=== PATIENT | female | born 1965 | race Caucasian/White ===

== ENCOUNTER 2020-08-13 12:49 | Emergency (ER) | payer BC ==
[~2020-08-13] VITALS: Ht 162.6 cm; Wt 104.3 kg
[~2020-08-13 12:49] MED LIST: ATENOLOL50 MG PO; FLONASE NS; LEVAQUIN500 MG PO; NORCO 10-325 T1 EACH PO; NORCO 5-325 TA1 EACH PO; PANTOPRAZOLE SO40 MG PO; PEPCID20 MG PO; PERCOCET 7.5-31 EACH PO; PROMETHAZINE HC25 M1 PO; VERAPAMIL ER180 M1 PO; VESICARE5 MG PO; XANAX0.5 MG PO; ZOLOFT50 MG PO
--- OUTSIDE RECORDS SUMMARY | 2020-08-13 13:01 | XMS REPORT | Clinical Summary ---
Author Author [facility] Address Unknown Phone Unavailable Care Team Providers Care Claim Processor Name Role Phone Remy Bruce MD PCP Allergies Comments Active Allergy Reactions Severity Noted Date Codeine 06/08/2017 Sulfa (Sulfonamide 06/08/2017 Antibiotics) Medications End Date Status Medication Sig Dispensed Refills Start Date Active verapamil sustained 0 release (CALAN-SR) 180 MG 7 SR tablet Active traMADol (ULTRAM) 50 mg TK 1 T PO 0 tablet EVERY 8 HOURS 7 PRN Active sertraline (ZOLOFT) 50 MG 0 tablet 7 Active pantoprazole (PROTONIX) 0 40 MG EC tablet 7 Active COMBIVENT RESPIMAT 20-100 INHALE 1 PUFF 5 03/28 mcg/actuation mist BY MOUTH 4 7 inhaler TIMES A DAY Active fluticasone (FLONASE) 50 0 mcg/actuation nasal spray 7 Active atenolol (TENORMIN) 100 0 MG tablet 9 Active ALPRAZolam (XANAX) 1 MG 0 tablet 9 Active MYRBETRIQ 50 mg tablet 0 extended release 24 hr 9 Active solifenacin (VESICARE) 10 daily. 0 MG tablet Active gabapentin (NEURONTIN) TAKE 2 90 capsule 1 300 mg capsule CAPSULES BY 0 MOUTH 3 TIMES A DAY Active baclofen (LIORESAL) 10 MG TAKE 1 TABLET 90 tablet 0 tablet BY MOUTH 0 THREE TIMES A DAY NEEDED FOR MUSCLE SPASMS 10/12/2019 Discontinued atenolol (TENORMIN) 50 MG 0 tablet 7 09/05/2019 Discontinued (Reorder) baclofen (LIORESAL) 10 MG Take 1 tab PO 90 tablet 0 tablet TID prn 8 muscle spasms. 09/05/2019 Discontinued (Reorder) gabapentin (NEURONTIN) Take 2 pills 180 capsule 11 100 mg capsule TID 8 09/28/2019 Discontinued (Reorder) baclofen (LIORESAL) 10 MG Take 1 tab PO 90 tablet 0 tablet TID prn 9 muscle spasms. 01/08/2020 Discontinued gabapentin (NEURONTIN) Take 2 pills 90 capsule 1 300 mg capsule TID 9 10/21/2019 Discontinued (Reorder) baclofen (LIORESAL) 10 MG TAKE 1 TABLET 90 tablet 0 tablet BY MOUTH 3 9 TIMES A DAY NEEDED FOR MUSCLE SPASMS 02/18/2020 Discontinued baclofen (LIORESAL) 10 MG TAKE 1 TABLET 90 tablet 0 tablet BY MOUTH 9 THREE TIMES A DAY NEEDED FOR MUSCLE SPASMS 02/18/2020 Discontinued gabapentin (NEURONTIN) TAKE 2 90 capsule 1 300 mg capsule CAPSULES BY 0 MOUTH 3 TIMES A DAY 06/02/2020 Discontinued baclofen (LIORESAL) 10 MG TAKE 1 TABLET 90 tablet 0 tablet BY MOUTH 0 THREE TIMES A DAY NEEDED FOR MUSCLE SPASMS Active Problems Problem Noted Date Myositis 07/20/2017 Encounters Care Team Description Date Type Specialty Davy Nolasco III, MD 06/02/2020 Refill Orthopedic Surgery Davy Nolasco III, MD 02/18/2020 Refill Orthopedic Surgery Davy Nolasco III, MD 01/08/2020 Refill Orthopedic Surgery Jose J Rodriguez MD Abnormal finding on breast imaging 11/09/2019 Hospital Radiology Encounter Jose J Rodriguez MD Abnormal finding on breast imaging 11/09/2019 Hospital Radiology Encounter [facility] 11/02/2019 Telephone Radiology Jose J Rodriguez MD 10/29/2019 Hospital Radiology Encounter Jose J Rodriguez MD 10/29/2019 Hospital Radiology Encounter Davy Nolasco III, MD 10/21/2019 Refill Orthopedic Surgery Jose J Rodriguez MD Well woman exam; Breast cancer screening 10/19/2019 Hospital Radiology Encounter Jose J Rodriguez MD Well woman exam (Primary Dx); Breast cancer screening 10/12/2019 Office Visit Obstetrics and Gyne cology Davy Nolasco III, MD 09/28/2019 Refill Orthopedic Surgery Davy Nolasco III, MD Myositis of other site, unspecified myos itis type (Primary Dx) 09/05/2019 Office Visit Orthopedic Surgery after 08/13/2019 Family History Medical History Relation Name Comments Breast cancer Maternal Sridevi Grandmother Osteoporosis Maternal Sridevi Grandmother Osteoporosis Mother Paty Relation Name Status Comments Maternal Grandmother Sridevi Mother Paty Social History Date Tobacco Use Types Packs/Day Years Used Never Smoker Smokeless Tobacco: Never Used Drinks/Week oz/Week Comments Alcohol Use No Sex Assigned at Date Recorded Not on file Industry Job Start Date Occupation Not on file Not on file Not on file Travel End Travel History Travel Start No recent travel history available. Last Filed Vital Signs Reading Time Taken Comments Vital Sign 147/84 10/12/2019 10:39 AM DENTAL SURGEON Blood Pressure 60 10/12/2019 10:39 AM DENTAL SURGEON Pulse - - Temperature - - Respiratory Rate - - Oxygen Saturation - - Inhaled Oxygen Concentration 113 kg (249 lb) 10/12/2019 10:39 AM DENTAL SURGEON Weight 162.6 cm (5' 4") 10/12/2019 10:39 AM DENTAL SURGEON Height 42.74 10/12/2019 10:39 AM DENTAL SURGEON Body Mass Index Plan of Treatment Health Maintenance Due Date Last Done Comments CERVICAL CANCER SCREENING 1986 COLONOSCOPY SCREENING 2015 SHINGLES VACCINES (#1) 2015 INFLUENZA VACCINE 07/29/2020 08/08/2019 BREAST CANCER SCREENING 11/09/2021 11/09/2019, 10/19/2019 Procedures Comments Procedure Name Priority Date/Time Associated Diag nosis US BREAST LEFT LIMITED Routine 11/09/2019 Abnorma l finding on 9:18 AM DENTAL SURGEON breast imaging MAMMO BREAST DIAGNOSTIC Routine 11/09/2019 Abnorm al finding on TOMOSYNTHESIS LEFT 8:26 AM DENTAL SURGEON breast imaging MAMMO BREAST SCREEN Routine 10/19/2019 Well woman exam TOMOSYNTHESIS BILATERAL 11:40 AM DENTAL SURGEON Breast cancer screening HPV MRNA E6/E7 REFLEX Routine 10/12/2019 HPV 16, 18/45 (REFLEX) 11:15 AM DENTAL SURGEON THINPREP TIS PAP Routine 10/12/2019 11:15 AM DENTAL SURGEON PAP W/AGE BASED SCREENING Routine 10/12/2019 Well woman exam PROTOCOLS 11:15 AM DENTAL SURGEON Breast cancer scree [place] INJECT TRIGGER POINT, Routine 09/05/2019 Myosi tis of other site, 1 OR 2 2:30 PM CDT unspecified myositi s type after 08/13/2019 Results * US Breast Left Limited (11/09/2019 9:18 AM DENTAL SURGEON) Specimen Narrative Performed At PROCEDURE: MAMMO BREAST DIAGNOSTIC TOMOSYNTHESIS LEFT , US BREAST LEFT LIMITED [facility] Computer aided detection with tomosynth esis was utilized for the interpretation. HISTORY: 53-year-old female recalled from screening for an abnormal left mammogram. COMPARISON: 10/19/2019-07/30/2016. DENSITY: The breast are almost entirely fatty. MAMMOGRAM: Additional evaluation was pe rformed for the asymmetry in the right lateral breast. On the full-field digit al left LM view, there is no definitive correlate for the previously noted asym metry and spot compression on the CC view demonstrate effacement of fibroglandular tissues. ULTRASOUND: Targeted left breast ultras ound of the lateral breast demonstrates benign fatty tissue. IMPRESSION: No mammographic or sonogr aphic evidence of malignancy. RECOMMENDATION: Correlation with physic al exam and annual mammography. BI-RADS 1: NEGATIVE DWS01 Performing Organization Address City/State/Zipcode Ph one Number [facility] [address] [place] [address] * Mammo Breast Diagnostic Tomosynthesis Left (11/09/2019 8:26 AM DENTAL SURGEON) Specimen Narrative Performed At PROCEDURE: MAMMO BREAST DIAGNOSTIC TOMOSYNTHESIS LEFT , US BREAST LEFT LIMITED [facility] Computer aided detection with tomosynth esis was utilized for the interpretation. HISTORY: 53-year-old female recalled from screening for an abnormal left mammogram. COMPARISON: 10/19/2019-07/30/2016. DENSITY: The breast are almost entirely fatty. MAMMOGRAM: Additional evaluation was pe rformed for the asymmetry in the right lateral breast. On the full-field digit al left LM view, there is no definitive correlate for the previously noted asym metry and spot compression on the CC view demonstrate effacement of fibroglandular tissues. ULTRASOUND: Targeted left breast ultras ound of the lateral breast demonstrates benign fatty tissue. IMPRESSION: No mammographic or sonogr aphic evidence of malignancy. RECOMMENDATION: Correlation with physic al exam and annual mammography. BI-RADS 1: NEGATIVE DWS01 Performing Organization Address [facility]/Replaced By [facility] one Number [facility] [address] [place] [address] * Mammo Breast Screen Tomosynthesis Bilateral (10/19/2019 11:40 AM DENTAL SURGEON) Specimen Narrative Performed At PROCEDURE: MAMMO BREAST SCREEN TOMOSYNTHESIS BILATERA L [facility] Computer aided detection was utilized f or the interpretation. Bilateral digital screening mammogram was performed with tomosynthesis. COMPARISON EXAMS: 2017 and 2016 DENSITY: The breast tissue is almost entirely fatty. FINDINGS: No suspicious finding is seen in the right breast. There is an asymmetry with the suggesti on of associated architectural distortion in the lateral left breast posterior de pth on the CC views. It is difficult to determine if this may correspond to a s urgical scar site, marked with a linear marker in the upper outer quadrant middle depth. IMPRESSION: Left breast asymmetry with possible dis tortion. Additional imaging evaluation is recommended with left breast diagnostic tomosynthesis mammogram and possible ultrasound exam. BI-RADS 0: INCOMPLETE - need addition al imaging evaluation This facility is accredited by the [facility] [employer] for Mammography. A negative x-ray report should not penny y biopsy if a dominant or clinically suspicious mass is present. Not all c ancers are identified by x-ray. DWS01 Performing Organization Address [facility]/Replaced By [facility] one Number [facility] [address] [place] [address] * HPV mRNA E6/E7 REFLEX HPV 16, 18/45 (10/12/2019 11:15 AM DENTAL SURGEON) HPV mRNA e6/e7 Not Detected Not Detected [facility] Comment: [facility] This test was performed using ING II the APTIMA HPV Assay ([employer] This assay detects E6/E7 viral messenger RNA (mRNA) from 14 high-risk HPV types (16,18,31,33,35,39,45,51,52,56 ,58,59,66,68). The analytical performance characteristics of this assay have been determined by [employer]. The modifications have not been cleared or approved by the FDA. This assay has been validated pursuant to the CLIA regulations and is used for clinical purposes. Specimen Resulting Agency Comment Performing Organization Information: Site ID: [id number] [facility]: [facility] Address: [address] [place] [id number] Director: Dr. Khoa Funes Performing Organization Address [facility]/Replaced By [facility] [place] [address] II * PAP W/AGE BASED SCREENING PROTOCOLS (10/12/2019 11:15 AM DENTAL SURGEON) Comment Comment: [facility] This order for age-based [facility] cervical cancer and STI ING II screening follows ACOG guidelines(PB 168, 140, XPK402). See individual assays for performing site location. Specimen Swab Resulting Agency Comment Performing Organization Information: Site ID: [id number] [facility]: [facility] Address: [address] [place] [id number] Director: Dr. Khoa Funes Performing Organization Address [facility]placed By [facility] one Number [place] [address] [address] II * THINPREP TIS PAP (10/12/2019 11:15 AM DENTAL SURGEON) Clinical None given [facility] information [facility] [place] Date of last NONE GIVEN [facility] menstrual DIAGNOSTICS period [place] Prev. pap: NONE GIVEN [facility] [place] Prev. bx: NONE GIVEN [facility] [place] Source None given [facility] [place] Statement of Comment: [facility] adequacy Satisfactory for evaluation. DI[facility]NOST ICS Endocervical/transformation [place] zone component absent. Interpretation/ Comment: Negative for [facility] result: intraepithelial lesion or DIAGNOSTICS malignancy. [place] Comment Comment: [facility] This Pap test has been DIAGNOSTICS evaluated with computer GARRETT assisted technology. Cytotechnologis Comment: [facility] t KXJ, CT(ASCP) DIAGNOSTICS CT screening location: [place] [address] [address], [facility] [address] Comment Comment: [facility] EXPLANATORY NOTE: DIAGNOSTICS The Pap is a screening test [place] for cervical cancer. It is not a diagnostic test and is subject to false negative and false positive results. It is most reliable when a satisfactory sample, regularly obtained, is submitted with relevant clinical findings and history, and when the Pap result is evaluated along with historic and current clinical information. Specimen Resulting Agency Comment Performing Organization Information: Site ID: [id number] Name: [facility] Address: [address] [place] [address] Director: Khoa Funes Performing Organization Address City/State/Zipcode Ph one Number [place] [employer] [facility] [place] [address] [place] [address] [phone] * 1 or 2 Trigger Point Injection: Bilateral lumbar (09/05/2019 2:30 PM CDT) Narrative Performed At Davy Nolasco III, MD 2018 3:00 PM 1 or 2 Trigger Point Injection: Bilater al lumbar Date/Time: 09/05/2019 2:51 PM Performed by: Davy Nolasco III, MD Authorized by: Davy Nolasco III, MD Consent: Consent obtained: Verbal Consent given by: Patient Indications: Indications: Pain relief Location: Therapeutic Trigger Point Injection: Single/multiple trigger point(s): 1-2 muscle groups Location: back Back location injected: Bilateral l umbar Platelet Rich Plasma Used: no PRP Use d EMG Guidance Used: no emg guidance used Right side: Right Lumbar Medications administered: 3 mg betamethasone acetate & sodium phosphate 6 mg/mL; 6 mg betamethasone a cetate & sodium phosphate 6 mg/mL; 1 mL lidocaine 10 mg/mL (1 %); 0.5 mL l idocaine 10 mg/mL (1 %) Left side: Left Lumbar Medications administered: 3 mg betamethasone acetate & sodium phosphate 6 mg/mL; 6 mg betamethasone a cetate & sodium phosphate 6 mg/mL; 1 mL lidocaine 10 mg/mL (1 %); 0.5 mL l idocaine 10 mg/mL (1 %) Pre-procedure details: Neurovascular status: intact Skin preparation: Alcohol Procedure details: Syringe type: Luer lock syringe Needle gauge: 25 G Post-procedure details: Patient tolerance of procedure: Amee erated well, no immediate complications after 08/13/2019 Insurance Type Payer Benefit Subscriber ID Effective Phone Address Plan / Dates Group PPO BCBS BCBS xxxxxxxxxxxx [id number] CHOICE resent PPO/SERGIO [place] PPO Advance Directives For more information, please contact: [phone] Patient Credit Investigator Explanation Type Date Recorded Advance Directives, Living Will 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
--- OUTSIDE RECORDS SUMMARY | 2020-08-13 13:01 | XMS REPORT | Continuity of Care Document ---
Author Author Hawk Anmooredenys Alba MARILYN Turcios [facility] CSS99 Information Exchange Address Unknown Phone Unavailable Care Team Providers Care Bird Sitter Name Role Phone [employer] Unavailable Un available Problems Problem Status Onset Date Classification Date Reported Comments Source LT HAND' Active 07/17/2019 [facility] LT HAND Active 07/13/2019 [facility] BACK PAIN Active 05/31/2017 [facility] ACUTE LEFT FLANK PAIN Active 05/31/2017 [facility] E66.01MORBID (SEVERE) OBESITY DUE TO EXC Active 09/22/2016 [facility] M85 - OTHER DISORDERS OF BONE DENSIT Active 07/27/2016 [facility] [place] Swelling of limb (finding) Act ger 06/28/2012 Problem 09/21/2019 Data migrated from [employer] on 04/26. [facility] Nidia Ely's,[facility] 719.46 - JOINT PAIN-L/LE Active 02/22/2012 [facility] Fry Synovial cyst of popliteal space (disorder) Active 01/14/2012 Problem 09/21/2019 Data migrated from [employer] on 04/26/15. [facility] Nidia Ely's,[facility] Carpal tunnel syndrome (disorder) Active 09/17/2011 Problem 09/21/2019 Data migrated from [employer] on 04/26. [facility] Nidia Ely's,[facility] Depressive disorder (disorder) Active 09/17/2011 Problem 09/21/2019 Data migrated from [employer] on 04/26. [facility] Nidia Ely's,[facility] Sleep apnea (finding) Active 04/09/2011 Problem 09/21/2019 Data migrated from [employer] on 04/26. [facility] Nidia Ely's,[facility] Drusen of optic disc (disorder) Active 03/26/2011 Problem 09/21/2019 Data migrated from [employer] on 04/26. [facility] NAYLA Lau,[facility] Obesity (disorder) Active 01/25/2011 Problem 09/21/2019 Data migrated from [employer] on 04/26. [facility] Nidia Trevizo [place],[facility] Migraine with aura (disorder) Active 11/06/2010 Problem 09/21/2019 Data migrated from [employer] on 04/26. [facility] Nidia Trevizo [place],[facility] Asthma (disorder) Active 10/05/2010 Problem 09/21/2019 Data migrated from [employer] on 04/26. [facility] Nidia Trevizo [place],[facility] Bronchitis (disorder) Resolved 10/05/2010 Problem 09/21/2019 Data migrated from [employer] on 06/13. [facility] Nidia Trevizo [place],[facility] Hypercholesterolemia (disorder) Active 10/05/2010 Problem 09/21/2019 Data migrated from [employer] on 04/26. [facility] Nidia Trevizo [place],[facility] Hypertensive episode (disorder) Active 10/05/2010 Problem 09/21/2019 Data migrated from [employer] on 04/26. [facility] Nidia Trevizo [place],[facility] Mitral valve prolapse (disorder) Active 10/05/2010 Problem 09/21/2019 Data migrated from [employer] on 04/26. [facility] Nidia Trevizo [place],[facility] Hypertensive disorder, systemic arterial (disorder) Resolved Problem 09/21/2019 [facility] Medications Medication Details Route Status Patient Instructions Ordering Provider Order Date Source tramadol hydrochloride 50 MG Oral Tablet 50 mg = 1 tab, PO, Q6H, PRN Pain, X 5 day, # 20 tab, 0 Refill(s) Active 06/02/2017 [facility] gabapentin 100 MG Oral Capsule 100 mg = 1 cap, PO, Q8H, # 42 cap, 0 Refill(s) Active 06/02/2017 [facility] Pneumovax 23 Notes: (Same as: Pneumovax 23) Refrigerate Inactive 06/02/2017 [facility] Verapamil Notes: Do not crush or chew. (Same As: Calan SR, Isoptin SR) "Avoid grapefruit and grapefruit juice" Inactive 06/02/2017 [facility] Zoloft Notes: (Same as: Zolof t) Inactive 06/02/2017 [facility] Protonix Notes: Tablet should not be chewed or crushed. (Same as: Protonix) Inactive 06/02/2017 [facility] gabapentin 100 MG Oral Capsule Notes: (Same as: Neurontin) Inactive 06/02/2017 [facility] Atenolol 50 MG Oral Tablet Not es: (Same As:Tenormin) No Longer Active 06/02/2017 [facility] Fluticasone propionate 0.05 MG/ACTUAT Me tered Dose Nasal [place] [Flonase] Notes: (Same as: Flonase) No Longer Active 06/01/2017 [facility] Albuterol 0.833 MG/ML / Ipratropium Brom gerardo 0.167 MG/ML Inhalant Solution [DuoNeb] Notes: (Same as: Duoneb) No Longer Active 06/01/2017 [facility] pneumococcal capsular polysaccharide typ e 1 vaccine / pneumococcal capsular polysaccharide type 10A vaccine / pneumococcal capsular polysaccharide type 11A vaccine / pneumococcal capsular polysaccharide type 12F vaccine / pneumococcal capsular polysacchar Notes: (Same as: Pneumovax 23) Refrigerate No Longer Active 06/01/2017 [facility] Sucralfate 100 MG/ML Oral Suspension [Carafate] Notes: May interfere w/enteral feeds - Take 1 hr before or 2 hr after antacids, dairy pdt, meals & minerals - On empty stomach. For patients unable to swallow tablet, dissolve in 10mL - 30mL of water or juice and stir before giving. (Same As: Carafate) No Longer Activ e 06/01/2017 [facility] Saline Flush 0.9% Notes: (Same as: BD Posiflush) No Longer Active 06/01/2017 [facility] Sodium Chloride 0.154 MEQ/ML Injectable Solution 1,000 mL, Rate: 125 ml/hr, Infuse over: 8 hr, Route: IV, Dosing Weight 103.636 kg, Total Volume: 1,000, Start date: 05/31/17 19:59:00 CDT, Duration: 30 day, Stop date: 06/30/17 19:58:00 CDT No Longer Active 06/01/2017 [facility] Acetaminophen 325 MG / Hydrocodone Jesusita trate 5 MG Oral Tablet Notes: (Same as: [place] 325/5) Do not ex ceed 4gm/day of acetaminophen. No Longer Active 06/01/2017 [facility] Morphine 2 mg, 1 mL, Route: IV P, Drug form: SOLN, Q4H, Dosing Weight 103.636, kg, PRN Pain Score 7-10, Start date: 05/31/17 19:59:00 CDT, Duration: 30 day, Stop date: 06/30/17 19:58:00 CDT No Longer Active 06/01/2017 [facility] Ondansetron Notes: (Same as: Tresa person) MEDICATION WASTE Product Size: 4 mg Product Wasted: ___ mg No Longer Active 06/01/2017 [facility] MethylPREDNISolone Dose Pack 4 mg oral tablet See Instructions, PO, Daily, Use as directed on label., # 1 Pack, 0 Refill(s) No Longer Active 06/01/2017 [facility] verapamil 180 mg oral tablet, extended release 180 mg = 1 tab, PO, Daily, # 30 tab, 0 Refill(s) Active 06/01/2017 [facility] Sucralfate 100 MG/ML Oral Suspension [Carafate] 1 gm = 10 ml, PO, QID-Before Meals, # 400 ml, 0 Refill(s) Active 06/01/2017 [facility] Atenolol 50 MG Oral Tablet 50 mg = 1 tab, PO, Bedtime, # 30 tab, 0 Refill(s) Active 06/01/2017 [facility] Fluticasone propionate 0.05 MG/ACTUAT Me tered Dose Nasal [place] [Flonase] 1 spray, NASAL, BID, # 16 gm, 0 Refill(s ) Active 06/01/2017 [facility] 200 ACTUAT Albuterol 0.09 MG/ACTUAT / Ip ratropium [place] 0.018 MG/ACTUAT Metered Dose Inhaler [Combivent] See Instructions, 0 Refill(s) Active 06/01/2017 [facility] pantoprazole 40 MG Enteric Coated Tablet [Protonix] 40 mg = 1 tab, PO, Daily, # 30 tab, 0 Refill(s) Active 06/01/2017 [facility] Sertraline 50 MG Oral Tablet [Zoloft] 50 mg = 1 tab, PO, Daily, 0 Refill(s) Active 06/01/2017 [facility] Sodium Chloride 0.154 MEQ/ML Injectable Solution 1,000 mL, Rate: 100 ml/hr, Infuse over: 10.2 hr, Route: IV, Dosing Weight 103.636 kg, Total Volume: 1,015.2, Start date: 05/31/17 17:23:00 CDT, Duration: 1 doses or times, Stop date: 06/01/17 3:34:00 CDT Inactive 05/31/2017 [facility] Dilaudid 0.5 mg, 0.5 mL, Route : IV, Drug form: INJ, ONCE, Dosing Weight 103.636, kg, Start date: 05/31/17 17:12:00 CDT, Stop date: 05/31/17 17:12:00 CDT Inactive 05/31/2017 [facility] Dilaudid 0.5 mg, 0.5 mL, Route : IV, Drug form: INJ, ONCE, Dosing Weight 103.636, kg, Start date: 05/31/17 13:47:00 CDT, Stop date: 05/31/17 13:47:00 CDT Inactive 05/31/2017 [facility] Morphine Notes: (Same as:MORPh ine Sulfate) Inactive 05/31/2017 [facility] Zofran Notes: (Same as: Zofran ) MEDICATION WASTE Product Size: 4 mg Product Wasted: ___ mg Inactive 05/31/2017 [facility] Sodium Chloride 0.154 MEQ/ML Injectable Solution 1,000 mL, 1,000 ml/hr, Infuse Over: 1 hr, Route: IV, 1,000, Drug form: INJ, ONCE, Priority: STAT, Dosing Weight 103.636 kg, Start date: 05/31/17 12:07:00 CDT, Duration: 1 doses or times, Stop date: 05/31/17 12:07:00 CDT Inactive 05/31/2017 [facility] Allergies, Adverse Reactions, Alerts Substance Category Reaction Severity Reaction type Status Date Reported Comments Source codeine<sup>1</sup> Assertion Drug allergy Active 10/05/2010 Data migrated from [employer] on 01/28/16. Originally documented as CODEINE. [facility] sulfa drugs<sup>2</sup> Assert ion Drug aller gy Active 10/05/2010 Data migrated from [employer] on 06/26/15. Originally documented as SULFA. [facility] sulfa drugs<sup>1</sup> Assert ion Drug aller gy Active 10/05/2010 Data migrated from [employer] on 06/26/15. Originally documented as SULFA. [facility] codeine<sup>2</sup> Assertion Drug allergy Active 10/05/2010 Data migrated from [employer] on 01/28/16. Originally documented as CODEINE. [facility] Immunizations Immunization Date Given Site Status Last Updated Comments Source pneumococcal 23-valent vaccine 06/02/2017 Right deltoid completed Norbert Choudhary [facility] [facility] Results Order Name Results Value Reference Range Date Interpretation Comments Source CHEM PANEL Magnesium Lvl 1.9 1.8 - 2.4 06/01/2017 [facility] CHEM PANEL Phosphorus 4.1 2.5 - 4.5 06/01/2017 [facility] CHEM PANEL BUN 13 7 - 22 06/01/2017 [facility] CHEM PANEL Creatinine Lvl 0.75 0.50 - 1.40 06/01/2017 [facility] CHEM PANEL Glucose Lvl 77 70 - 99 06/01/2017 [facility] CHEM PANEL B/C Ratio 17 6 - 25 06/01/2017 [facility] CHEM PANEL Calcium Lvl 8.4 8.5 - 10.5 06/01/2017 [facility] CHEM PANEL CO2 29 24 - 32 06/01/2017 [facility] CHEM PANEL AGAP 10.5 10.0 - 20.0 06/01/2017 [facility] CHEM PANEL Chloride Lvl 107 95 - 109 06/01/2017 [facility] CHEM PANEL Potassium Lvl 3.5 3.5 - 5.1 06/01/2017 [facility] CHEM PANEL Sodium Lvl 143 135 - 145 06/01/2017 [facility] CHEM PANEL AST 221 0 - 37 06/01/2017 [facility] CHEM PANEL Alk Phos 162 39 - 136 06/01/2017 [facility] CHEM PANEL A/G Ratio 1.3 0.7 - 1.6 06/01/2017 [facility] CHEM PANEL ALT 115 0 - 65 06/01/2017 [facility] CHEM PANEL Albumin Lvl 3.5 3.5 - 5.0 06/01/2017 [facility] CHEM PANEL Globulin 2.7 2.7 - 4.2 06/01/2017 [facility] CHEM PANEL Total Protein 6.2 6.4 - 8.4 06/01/2017 [facility] CHEM PANEL eGFR 93 06/01/2017 Result Comment: The eGFR is calculated using the CKD-EPI formula. In most young, healthy individuals the eGFR will be >90 mL/min/1.73m2. The eGFR declines with age. An eGFR of 60-89 may be normal in some populations, particularly the elderly, for whom the CKD-EPI formula has not been extensively validated. Use of the eGFR is not recommended in the following populations:

Individuals with unstable creatinine concentrations, including patients and those with serious co-morbid conditions.

Patients with extremes in muscle mass or diet.

The data above are obtained from the National Kidney Disease Education Program (NKDEP) which additionally recommends that when the eGFR is used in patients with extremes of body mass index for purposes of drug dosing, the eGFR should be multiplied by the estimated BMI. [facility] CHEM PANEL Bili Total 1.0 0.2 - 1.3 06/01/2017 [facility] RBC 4.58 4.20 - 5.40 06/01/2017 [facility] MCHC 32.9 32.0 - 36.0 06/01/2017 [facility] Hgb 12.3 12.0 - 16.0 06/01/2017 [facility] Hct 37.3 36.0 - 48.0 06/01/2017 [facility] MCV 81.4 80.0 - 98.0 06/01/2017 [facility] MCH 26.8 27.0 - 31.0 06/01/2017 [facility] MPV 8.0 7.4 - 10.4 06/01/2017 [facility] RDW 15.2 11.5 - 14.5 06/01/2017 [facility] Platelet 245 133 - 450 06/01/2017 [facility] WBC 7.9 3.7 - 10.4 06/01/2017 [facility] Lymphocytes 32.7 20.0 - 40.0 06/01/2017 [facility] Monocytes 6.7 2.0 - 12.0 06/01/2017 [facility] Segs 58.5 45.0 - 75.0 06/01/2017 [facility] Eosinophils 1.7 0.0 - 4.0 06/01/2017 [facility] HEMATOLOGY Basophils 0.4 0.0 - 1.0 06/01/2017 [facility] HEMATOLOGY Segs-Bands # 4.6 1.5 - 8.1 06/01/2017 [facility] HEMATOLOGY Lymphocytes # 2.6 1.0 - 5.5 06/01/2017 [facility] HEMATOLOGY Monocytes # 0.5 0.0 - 0.8 06/01/2017 [facility] HEMATOLOGY Eosinophils # 0.1 0.0 - 0.5 06/01/2017 [facility] CHEM PANEL Lipase Lvl 205 73 - 393 05/31/2017 [facility] CHEM PANEL B/C Ratio 14 6 - 25 05/31/2017 [facility] CHEM PANEL A/G Ratio 1.2 0.7 - 1.6 05/31/2017 [facility] CHEM PANEL Globulin 3.0 2.7 - 4.2 05/31/2017 [facility] CHEM PANEL AGAP 11.3 10.0 - 20.0 05/31/2017 [facility] CHEM PANEL Bili Total 0.3 0.2 - 1.3 05/31/2017 [facility] CHEM PANEL eGFR 74 05/31/2017 Result Comment: The eGFR is calculated using the CKD-EPI formula. In most young, healthy individuals the eGFR will be >90 mL/min/1.73m2. The eGFR declines with age. An eGFR of 60-89 may be normal in some populations, particularly the elderly, for whom the CKD-EPI formula has not been extensively validated. Use of the eGFR is not recommended in the following populations:

Individuals with unstable creatinine concentrations, including patients and those with serious co-morbid conditions.

Patients with extremes in muscle mass or diet.

The data above are obtained from the National Kidney Disease Education Program (NKDEP) which additionally recommends that when the eGFR is used in patients with extremes of body mass index for purposes of drug dosing, the eGFR should be multiplied by the estimated BMI. [facility] CHEM PANEL Total Protein 6.5 6.4 - 8.4 05/31/2017 [facility] CHEM PANEL ALT 34 0 - 65 05/31/2017 [facility] CHEM PANEL Albumin Lvl 3.5 3.5 - 5.0 05/31/2017 [facility] CHEM PANEL Alk Phos 121 39 - 136 05/31/2017 [facility] CHEM PANEL Creatinine Lvl 0.90 0.50 - 1.40 05/31/2017 [facility] CHEM PANEL Sodium Lvl 144 135 - 145 05/31/2017 [facility] CHEM PANEL Potassium Lvl 3.3 3.5 - 5.1 05/31/2017 [facility] CHEM PANEL Glucose Lvl 90 70 - 99 05/31/2017 [facility] CHEM PANEL BUN 13 7 - 22 05/31/2017 [facility] CHEM PANEL AST 17 0 - 37 05/31/2017 [facility] CHEM PANEL Chloride Lvl 108 95 - 109 05/31/2017 [facility] CHEM PANEL CO2 28 24 - 32 05/31/2017 [facility] CHEM PANEL Calcium Lvl 9.1 8.5 - 10.5 05/31/2017 [facility] HEMATOLOGY Hgb 12.6 12.0 - 16.0 05/31/2017 [facility] HEMATOLOGY WBC 8.8 3.7 - 10.4 05/31/2017 [facility] HEMATOLOGY RBC 4.73 4.20 - 5.40 05/31/2017 [facility] HEMATOLOGY Hct 38.5 36.0 - 48.0 05/31/2017 [facility] HEMATOLOGY MCV 81.3 80.0 - 98.0 05/31/2017 [facility] HEMATOLOGY MPV 8.3 7.4 - 10.4 05/31/2017 [facility] HEMATOLOGY Platelet 265 133 - 450 05/31/2017 [facility] HEMATOLOGY RDW 15.5 11.5 - 14.5 05/31/2017 [facility] MCH 26.7 27.0 - 31.0 05/31/2017 [facility] MCHC 32.9 32.0 - 36.0 05/31/2017 [facility] HEMATOLOGY Monocytes # 0.6 0.0 - 0.8 05/31/2017 [facility] HEMATOLOGY Lymphocytes 24.4 20.0 - 40.0 05/31/2017 [facility] HEMATOLOGY Basophils # 0.1 0.0 - 0.2 05/31/2017 [facility] HEMATOLOGY Monocytes 7.0 2.0 - 12.0 05/31/2017 [facility] HEMATOLOGY Basophils 0.8 0.0 - 1.0 05/31/2017 [facility] HEMATOLOGY Eosinophils 0.6 0.0 - 4.0 05/31/2017 [facility] HEMATOLOGY Segs-Bands # 5.9 1.5 - 8.1 05/31/2017 [facility] HEMATOLOGY Lymphocytes # 2.1 1.0 - 5.5 05/31/2017 [facility] HEMATOLOGY Segs 67.2 45.0 - 75.0 05/31/2017 [facility] URINE AND STOOL UA RBC 1 0 - 2 05/31/2017 [facility] URINE AND STOOL UA WBC <1 0 - 5 05/31/2017 [facility] URINE AND STOOL UA Sq Epi Occasional /LPF Few /LPF 05/31/2017 [facility] URINE AND STOOL UA Leuk Est Negative (05/31/17 12:41 PM) Negative 05/31/2017 [facility] URINE AND STOOL UA Nitrite Negative (05/31/17 12:41 PM) Negative 05/31/2017 [facility] URINE AND STOOL UA Urobilinogen <=1.0 mg/dL 0.1 - 1.0 05/31/2017 [facility] URINE AND STOOL UA Color Ltyellow 05/31/2017 [facility] URINE AND STOOL UA Bili Negative *NA* (05/31/17 12:41 PM) Negative 05/31/2017 [facility] URINE AND STOOL UA Glucose Negative mg/dL Negative mg/dL 05/31/2017 [facility] URINE AND STOOL UA pH 7.0 5.0 - 8.0 05/31/2017 [facility] URINE AND STOOL UA Blood Negative (05/31/17 12:41 PM) Negative 05/31/2017 [facility] URINE AND STOOL UA Protein Negative mg/dL Negative mg/dL 05/31/2017 [facility] URINE AND STOOL UA Ketones Negative mg/dL Negative mg/dL 05/31/2017 [facility] URINE AND STOOL UA Spec Grav 1.010 <=1.030 05/31/2017 [facility] URINE AND STOOL UA Turbidity Clear (05/31/17 12:41 PM) Clear 05/31/2017 [facility] URINE CHEM U Preg Negat ger (05/31/17 12:41 PM) Negative 05/31/2017 [facility] Pathology Reports No Data Provided for This Section Diagnostic Reports Report Value Date Source Breast Mammo Scrn WM w laurie incl CAD MA #[id number] - BREAST MAMMO SCRN WM W LAURIE INCL CAD MA BILATERAL DIGITAL SCREENING MAMMOGRAM 3D/2D WITH CAD: 09/21/2017 CLINICAL: /Z12.39 Encounter For Other Screening For Malignant Neoplasm Of Breast. Current study was evaluated with a Computer Aided Detection (CAD) system. COMPARISON:Comparison is made to exams dated: 07/30/2016 mammogram, 06/06/2015 mammogram, 02/02/2014 mammogram, 11/25/2012 mammogram, 10/22/2011 mammogram, and 07/16/2010 mammogram - [facility]. TECHNIQUE: Digital Breast Tomosynthesis was performed and utilized for Interpretation. Current study was also evaluated with a Computer Aided Detection (CAD) system. There are scattered fibroglandular densities in both breasts. FINDINGS: There are benign calcifications in both breasts. There also are benign scattered densities in both breasts. No significant masses, calcifications, or other findings are seen in either breast. There has been no significant interval change. IMPRESSION: BENIGN 1. NO DEFINITE MAMMOGRAPHIC EVIDENCE OF MALIGNANCY IN EITHER BREAST AND NO SIGNIFICANT CHANGE. RECOMMENDATION: 1. A ROUTINE SCREENING MAMMOGRAM IN ONE YEAR. Caroline Antoine M.D. sg/:09/22/2017 13:29:53 Outpatient Facility Physical Therapist(s): Zhara Chavez, [facility] This exam was dictated and interpreted by [id number] for [facility]. letter sent: BI-RADS 1/2 Mammogram BI-RADS: 2 Benign 09/21/2017 [facility] [place] Spine lumbar w/wo contrast MRI Patient Name: MARILYN FABIAN : 1965; Age: 51 years Female MR: [id number] Study: Spine lumbar w/wo contrast MRI 06/01/2017 3:28 PM CDT Clinical Indication: Back Pain - Pt c/o LBP, extending to left leg x 2 weeks. Pt denies injury. GFR 93 20 cc Multihance Lot [id number] // Nadine. COMPARISON: None TECHNIQUE: Multiplanar T1, T2, STIR weighted pre and postcontrast MRI of the lumbar spine is performed on the 1.5 [place] magnet. FINDINGS: ALIGNMENT AND GENERAL ASSESSMENT: Mild anterolisthesis of L4 and L5 measures 2 mm. The bone marrow is normal for the patient's age. There is no compression fracture. The anterior and posterior paraspinal soft tissues are normal. The conus medullaris ends at the L1 level. For the sake of nomenclature, five lumbar vertebrae are assumed. No abnormal vertebral body, disc or epidural enhancement post gadolinium. Nonenhancing bilateral renal cysts post gadolinium. DISC SPACES: T12-L1: The disc is normal. There is no central canal stenosis. There is no foraminal stenosis. The facet joints are normal. L1-L2: Small broad-based disc bulge. There is no central canal stenosis. Minimal left foraminal stenosis. The facet joints are normal. L2-L3: Small broad-based disc bulge. There is no central canal stenosis. Mild bilateral foraminal stenosis. The facet joints are normal. L3-L4: Small broad-based disc bulge. There is no central canal stenosis. Moderate left foraminal stenosis. The facet joints are normal. L4-L5: Small broad-based disc bulge. There is no central canal stenosis. There is no foraminal stenosis. Moderate to severe facet arthritic change. L5-S1: Small broad-based disc bulge. There is no central canal stenosis. There is no foraminal stenosis. Mild facet arthritic change bilaterally. IMPRESSION: Multilevel disc bulging with foraminal stenosis and facet arthritic change as described above. SL: [id number] 06/02/2017 [facility] Abdomen/Pelvis w/wo IV contrast CT Study: CT ABDOMEN AND PELVIS WITH AND WITHOUT CONTRAST Clinical Indication: Severe left abdominal pain for one week Comparison: None Technique: Axial images with sagittal and coronal reconstructions were obtained following intestinal contrast and prior to and following nonionic intravenous contrast, Omnipaque [address] Radiation Dose: DLP = 3294.63 mGy-cm. FINDINGS: The lung bases are clear. There is mild fatty infiltration of the liver. There is mild dilatation of biliary system, post cholecystectomy. Common duct measures 1.2 cm. No distal obstructing lesion is identified. The spleen appears normal. There is a slightly prominent left extrarenal pelvis and there are small cortical cysts. The kidneys are otherwise normal. The adrenals and pancreas are normal. Lower midline 3.9 cm diameter ventral abdominal wall defect allows herniation of small bowel and mesenteric fat into the abdominal wall pannus without inflammation or obstruction. No other intestinal lesion is identified, and there is no mesenteric inflammatory change. The uterus is absent. Adnexa and urinary bladder are not remarkable. No adenopathy or ascites is seen. Moderate lumbar spondylosis is noted. IMPRESSION: 1. No urinary tract pathology. 2. Fatty liver and slightly dilated bili andriy system post cholecystectomy. 3. Lower midline ventral abdominal wall hernia containing small bowel and fat without obstruction or inflammation. 4. Hysterectomy. SL: [id number] 05/31/2017 [facility] Stomach emptying WI Patient Na me: MARILYN FABIAN : 1965; Age: 50 years Female MR: [id number] Study: Stomach emptying NM 10/01/2016 7:45 AM CDT Clinical Indication: R10.13 Epigastric pain COMPARISON: None TECHNIQUE: 1 mCi of sulfur colloid meal was administered orally. Images were performed in anterior projection and an excretion curve plotted. FINDINGS: There is prompt activity identified within the stomach and prompt excretion into the small bowel thereafter. The slope of the excretion curve is within normal limits. The T half life is 70 minutes. (Normal range of 45min- 110min). % excretion at approx. 60 minutes: 22 % % excretion at approx. 90 minutes: 47 % % excretion at approx. 120 minutes: 63 % % excretion at approx. 180 minutes: 94 % % excretion at approx. 240 minutes: N/A % (Normal >90%) IMPRESSION: Normal gastric emptying study. SL: [id number] 10/01/2016 [facility] Bone Density DXA [employer] MA - Bone Density DXA [employer] MA BONE DENSITY EVALUATION: 07/30/2016 RISK FACTORS: race. FINDINGS: Bone density evaluation was performed 07/30/2016 on the AP L1-L4 region of spine using a Hologic unit. The BMD average for the exam is 1.125 g/cm2. The T-score is 0.70 and the Z-score is 1.50. These values indicate 117.0% for age-matched controls. This matches the World Health Organization's criteria for normal bone density and places the patient within normal limits of fracture risk. An additional bone density evaluation was performed 07/30/2016 on the right femur neck using a Hologic unit. The BMD average for the exam is 0.923 g/cm2. The T-score is 0.70 and the Z-score is 1.40. These values indicate 121.0% for age-matched controls. This matches the World Health Organization's criteria for normal bone density and places the patient within normal limits of fracture risk. An additional bone density evaluation was performed 07/30/2016 on the right hip using a Hologic unit. The BMD average for the exam is 1.119 g/cm2. The T-score is 1.50 and the Z-score is 1.90. These values indicate 127.0% for age-matched controls. This matches the World Health Organization's criteria for normal bone density and places the patient within normal limits of fracture risk. An additional bone density evaluation was performed 07/30/2016 on the left femur neck using a Hologic unit. The BMD average for the exam is 0.853 g/cm2. The Z- score is 0.80. These values indicate 112.0% for age-matched controls. Complete risk assessment of this region was not determined. An additional bone density evaluation was performed 07/30/2016 on the left hip using a Hologic unit. The BMD average for the exam is 1.122 g/cm2. The T-score is 1.50 and the Z-score is 2.00. These values indicate 127.0% for age-matched controls. This matches the World Health Organization's criteria for normal bone density and places the patient within normal limits of fracture risk. IMPRESSION: BONE DENSITY WITHIN NORMAL LIMITS Patient is at normal risk for fracture. Compared to BMD of prior exam of 07/16/2010, there has been a decrease in bone density in the lumbar spine of 1.1% and a decrease in bone density in the left hip of 8.2%. This exam was dictated and interpreted by [address] [place], [place] [address]GurpreetGurpreet [address] [place] [address], [place] [address]. Corey Decker M.D. bf/:08/03/2016 09:29:06 Outpatient Facility Physical Therapist: Delfina KING(Nicci)(Kenrick), [facility] 07/30/2016 [facility] Digital Mammo Screening Wm MA - DIGITAL MAMMO SCREENING WM MA BILATERAL DIGITAL SCREENING MAMMOGRAM WITH CAD: 07/30/2016 CLINICAL: Routine. Family history of breast cancer includes: Maternal great aunt . Current study was evaluated with a Computer Aided Detection (CAD) system. Comparison is made to exams dated: 06/06/2015 mammogram, 02/02/2014 mammogram, 11/25/2012 mammogram, 10/22/2011 mammogram, 07/16/2010 mammogram and 06/28/2009 mammogram - [facility]. There are scattered fibroglandular densities in both breasts. There are benign scattered calcifications and densities in both breasts. No significant masses, calcifications, or other findings are seen in either breast. There has been no significant interval change. IMPRESSION: BENIGN There is no mammographic evidence of malignancy. A 1 year screening mammogram is recommended. Sha Gómez M.D., mt/jacki:08/03/2016 10:37:33 Outpatient Facility Physical Therapist: Delfina Lopez RT(Nicci)(Kenrick), [facility] This exam was dictated and interpreted by [id number] [facility]. letter sent: Normal exam Mammogram BI-RADS: 2 Benign 07/30/2016 [facility] Consultation Notes No Data Provided for This Section Discharge Summaries No Data Provided for This Section History and Physicals No Data Provided for This Section Vital Signs Vital Sign Value Date Comments Source Temperature Oral (F) 98.2 F 06/02/2017 [facility] Heart Rate 66 06/02/2017 [facility] Respitory Rate 18 06/02/2017 [facility] Systolic (mm Hg) 135 06/02/2017 [facility] Diastolic (mm Hg) 79 06/02/2017 [facility] Systolic (mm Hg) 146 06/02/2017 [facility] Diastolic (mm Hg) 77 06/02/2017 [facility] Respitory Rate 18 06/02/2017 [facility] Heart Rate 53 06/02/2017 [facility] Temperature Oral (F) 98.2 F 06/02/2017 [facility] Systolic (mm Hg) 145 06/02/2017 [facility] Diastolic (mm Hg) 65 06/02/2017 [facility] Respitory Rate 19 06/02/2017 [facility] Temperature Oral (F) 98.8 F 06/02/2017 [facility] Heart Rate 52 06/02/2017 [facility] Height 160.02 cm 06/01/2017 [facility] Weight 103.636 06/01/2017 [facility] BMI Calculated 40.47 06/01/2017 [facility] Weight 103.636 05/31/2017 [facility] Height 160.02 cm 05/31/2017 [facility] BMI Calculated 40.47 05/31/2017 [facility] Encounters Location Location Details Encounter Type Encounter Number Reason For Visit Attending Provider ADM Date DC Date Status Source [facility]patient [facility] - [facility] Diag Services [id number] 04 Dasiajb Devine 07/30/2016 07/31/2016 [facility] Outpatient [id number] Helen Christina 10/01/2016 10/02/2016 [facility] Observation [id number] Jeffery Varner 05/31/2017 06/02/2017 [facility] Outpatient [facility] - [facility] Diag Services [id number] Dasia Devine 09/21/2017 09/22/2017 [facility] Nidia Ely's [facility] OP Therapy Patients [id number] Tab Christensen 07/17/2019 08/16/2019 [facility] OP Therapy Patients [id number] Tab Christensen 08/21/2019 09/20/2019 [facility] OD [id number] 719.46 - JOINT PAIN-L/LE DENISE YU Cancel PASCALE [place] Procedures Procedure Code Date Perfomer Comments Source Cholecystectomy [id number] [facility] Denia santoro [facility] Assessment and Plan No Data Provided for This Section Plan of Care No Data Provided for This Section Social History Social History Date Source Social History TypeResponse Smoking Status Never smoker; Exposure to Tobacco Smoke None; Cigarette Smoking Last 365 Days No; Reg Smoking Cessation Counseling No 05/31/2017 [facility] Ndiia Barrios s Social History TypeResponse Smoking Status Never smoker; Exposure to Tobacco Smoke None; Cigarette Smoking Last 365 Days No; Reg Smoking Cessation Counseling No 05/31/2017 [facility] Social History TypeResponse Smoking Status Never smoker; Exposure to Tobacco Smoke None; Cigarette Smoking Last 365 Days No; Reg Smoking Cessation Counseling No entered on: 05/31/17 05/31/2017 [facility] Family History No Data Provided for This Section Advance Directives No Data Provided for This Section Functional Status No Data Provided for This Section
--- OUTSIDE RECORDS SUMMARY | 2020-08-13 13:02 | XMS REPORT | Continuity of Care Document ---
Author Author [facility] t Organization [facility] Address Formerly [facility], later [facility] [place] [address] Phone Unavailable Care Team Providers Care Milk Collector Name Role Phone Jaxson MAHARAJ PCP Unavailable Jaxson MAHARAJ Attphys Unavailable Constance CASTRO, Damián Bhatti Attphys Jennifer CASTRO, Lydia Lux Attphys Di Corcoran Attphys Unavailable Jesus Christensen Attphys TAB CHRISTENSEN M.D. Attphys Unavailable Tracie Meyers Attphys Korey Devine Attphys Librado Varner Attphys Akilah Still Attphys Librado Varner Admphys Payers Payer Name Policy Type Policy Number Effective Date Expiration Date Gary rousseau [place] POS [id number] 2014 00:00:00 BCBSBCBS CHOICE PPO/FEDERAL EMPL PPOxxxxxxxxxxxx2013-Pre sentPPO xxxxxxxxxxxx 2014 00:00:00 [facility] Problems Condition Name Condition Details Condition Category Status Onset Date Resolution Date Last Treatment Date Treating Clinician Comments Source LT HAND' LT H AND' Active 07/17/2019 [facility] Diagnosis Active 2019-07-17 08:00:00 2019-08-21 14:01:00 Hawk Fry LT HAND LT H AND Active 07/13/2019 [facility] Diagnosis Active 2019-07-13 08:00:00 2019-07-17 14:12:00 Hawk Fry Myositis Myositis Disease Active 2017-07-20 00:00:00 [facility] BACK PAIN BACK PAIN Active 05/31/2017 [facility] Diagnosis Active 2017-05-31 00:00:00 2017-05-31 18:06:00 Hawk Fry ACUTE LEFT FLANK PAIN ACUT E LEFT FLANK PAIN Active 05/31/2017 [facility] Diagnosis Active 2017-05-31 00:00:00 2017-06-01 10:46: 00 Hawk Fry E66.01MORBID (SEVERE) OBESITY DUE TO EXC E66.01MORBID (SEVERE) OBESITY DUE TO EXC Active 09/22/2016 [facility] Diagnosis Ac tive 2016-09-22 00:00:00 2016-10-01 07:34:00 M ludwig Fry M85 - OTHER DISORDERS OF BONE DENSIT M85 - OTHER DISORDERS OF BONE DENSIT Active 07/27/2016 [facility] Diagnosis Active 2016-07-27 00:01:00 2016-07-30 09:33:00 M ludwig Fry Swelling of limb (finding) Swe lling of limb (finding) Active 06/28/2012 Problem 09/21/2019 Data migrated from [employer] on 04/26/15. [facility] Nidia [facility] Problem Active 2012-06-28 00:00:00 2019-09-21 23:18:21 Hawk Fry 719.46 - JOINT PAIN-L/LE 719. 46 - JOINT PAIN-L/LE Active 02/22/2012 [facility] Diagnosis Active 2012-02-22 00:01:00 2012-04-20 19:14:00 Hawk Fry Synovial cyst of popliteal space (disorder) Synovial cyst of popliteal space (disorder) Active 01/14/2012 Problem 09/21/2019 Data migrated from [employer] on 04/26/15. [facility] Nidia [facility] Problem Active 2012-01-14 00:00:00 2019-09-21 23:18:21 Hawk Fry Carpal tunnel syndrome (disorder) Carpal tunnel syndrome (disorder) Active 09/17/2011 Problem 09/21/2019 Data migrated from [employer] on 04/26/15. [facility] Nidia BarriossNAYLA,[facility] Problem Active 2011-09-17 00:00:00 2019-09-21 23:18:21 [facility] Depressive disorder (disorder) Depressive disorder (disorder) Active 09/17/2011 Problem 09/21/2019 Data migrated from [employer] on 04/26/15. [facility] Nidia BarriossNAYLA,[facility] Problem Active 2011-09-17 00:00:00 2019-09-21 23:18:21 [facility] [place] Sleep apnea (finding) Slee p apnea (finding) Active 04/09/2011 Problem 09/21/2019 Data migrated from [employer] on 04/26/15. 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 [facility] Nidia BarriossNYALA, [facility] Problem Active 2011-03-26 00:00:00 2019-09-21 23:18:21 [facility] [place] Obesity (disorder) Obes ity (disorder) Active 01/25/2011 Problem 09/21/2019 Data migrated from [employer] on 04/26/15. [facility] Nidia BarriossNAYLA, [facility] Problem Active 2011-01-25 00 :00:00 2019-09-21 23:18:21 [facility] Migraine with aura (disorder) Migraine with aura (disorder) Active 11/06/2010 Problem 09/21/2019 Data migrated from [employer] on 04/26/15. [facility] Nidia BarriossNAYLA,[facility] Problem Active 2010-11-06 00:00:00 2019-09-21 23:18:21 [facility] Asthma (disorder) Asth ma (disorder) Active 10/05/2010 Problem 09/21/2019 Data migrated from [employer] on 04/26/15. [facility] Nidia TrevizoNAYLA Bravo,[facility] Problem Active 2010-10-05 00 :00:00 2019-09-21 23:18:21 [facility] Hypercholesterolemia (disorder) Hypercholesterolemia (disorder) Active 10/05/2010 Problem 09/21/2019 Data migrated from [employer] on 04/26/15. [facility] NAYLA Lau,[facility] Problem Active 2010-10-05 00:00:00 2019-09-21 23:18:21 [facility] Hypertensive episode (disorder) Hypertensive episode (disorder) Active 10/05/2010 Problem 09/21/2019 Data migrated from [employer] on 04/26/15. [facility] NAYLA Lau,[facility] Problem Active 2010-10-05 00:00:00 2019-09-21 23:18:21 M emorishaheen Fry Mitral valve prolapse (disorder) Mitral valve prolapse (disorder) Active 10/05/2010 Problem 09/21/2019 Data migrated from [employer] on 04/26/15. [facility] Nidia Trevizo Lawrence,[facility] Problem Active 2010-10-05 00:00:00 2019-09-21 23:18:21 M ludwig Fry Pain of finger of right hand Pain of finger of right hand Problem Active [facility] Arthritis of carpometacarpal (CMC) joint of left thumb Arthritis of carpometacarpal (CMC) joint of left thumb Problem Active [facility] Arthritis of carpometacarpal (CMC) joint of right thum b Arthritis of carpometacarpal (CMC) joint of right thumb Problem Active [facility] De Quervain's tenosynovitis, left De Quervain's tenosynovitis, l eft Problem Active [facility] Contusion of left hand, initial encounter Contusion of left hand, initial encounter Problem Active [facility] Hypertensive disorder, systemic arterial (disorder) Hypertensive disorder, systemic arterial (disorder) Resolved Problem 09/21/[address] [facility] Nidia Barrioss,NAYLA Bravo,[facility] Problem Resolved 2019-09-21 23:18:21 [facility] History of Past Illness Condition Name Condition Details Condition Category Status Onset Date Resolution Date Last Treatment Date Treating Clinician Comments Source Bronchitis (disorder) Bron chitis (disorder) Resolved 10/05/2010 Problem 09/21/2019 [facility]15. [facility] Nidia [facility] [place],[facility] Problem Resolved 2010-09 00:00:00 2019-09-21 23:18:21 2019-09-21 23:18:21 [facility] Allergies, Adverse Reactions, Alerts Allergy Name Allergy Type Status Severity Reaction(s) Onset Date Inacti ve Date Treating Clinician Comments Source Sulfa (Sulfonamide Antibiotics) DA Active SV 2019-05-04 00 :00:00 [facility] codeine DA Active [place] 2019-05-04 00:00:00 [facility] Codeine Propensity to adverse reactions to drug Active 2017-06-08 00:00:00 [facility] Sulfa (Sulfonamide Antibiotics) Propensity to adverse reactions to drug Active 2017-06-08 00:00:00 [place] sulfa drugs<sup>2</sup> sulfa drugs<sup>2</sup> Active 2010-10-05 06:00:00 [facility] sulfa drugs<sup>1</sup> sulfa drugs<sup>1</sup> Active 2010-10-05 06:00:00 [facility] codeine<sup>2</sup> codeine<sup>2</sup> Active 2010-10-05 0 6:00:00 [facility] AMOXIL DA Active U 2007-11-13 00:00:00 [facility] CODEINE DA Active U 2007-11-13 00:00:00 [facility] No Known Contrast Allergies DA Active U 2007-11-13 00:00: 00 [facility] No Known Food Allergies DA Active U 2007-11-13 00:00:00 [facility] No Known Other Allergies DA Active U 2007-11-13 00:00:00 [facility] SULFA DRUGS DA Active U 2007-11-13 00:00:00 [facility] Sulfa (Sulfonamide Antibiotics) DA Active U 2007-11-06 00 :00:00 [facility] codeine DA Active U 2007-11-06 00:00:00 [facility] amoxicillin DA Active U 2007-11-06 00:00:00 [facility] Family History Family Member Diagnosis Comments Start Date Stop Date Source Maternal grandmother Breast cancer [facility] Maternal grandmother Osteoporosis [facility] Natural mother Osteoporosis Marshal Amato Social History Social Habit Start Date Stop Date Quantity Comments Source Sex Assigned At Venkat [facility] Alcohol intake 2019-10-12 00:00:00 2019-10-12 00:00:00 Current non-drinker of alcohol (finding) Marshal Amato Smoking Status Start Date Stop Date Source Social History [facility] Medications Ordered Medication Name Filled Medication Name Start Date Stop Da te Current Medication? Ordering Clinician Indication Dosage Frequency Signature (SIG) Comments Components Source baclofen (LIORESAL) 10 MG tablet 2020-06-02 00:00:00 Yes TAKE 1 TABLET BY MOUTH THREE TIMES A DAY NEEDED FOR MUSCLE SPASMS Marshal Amato gabapentin (NEURONTIN) 300 mg capsule 2020-02-18 00:00:00 Y es TAKE 2 CAPSULES BY MOUTH 3 TIMES A DAY Marshal Amato baclofen (LIORESAL) 10 MG tablet 2020-02-18 00:00:00 2020-05 00:00:00 No TAKE 1 TABLET BY MOUTH THREE TIMES A DAY NEE DED FOR MUSCLE SPASMS Marshal Amato gabapentin (NEURONTIN) 300 mg capsule 2020-01-08 00:00 :00 2020-02-18 00:00:00 No TAKE 2 CAPSULES BY MOUTH 3 TIMES A DAY Marshal Amato baclofen (LIORESAL) 10 MG tablet 2019-10-21 00:00:00 2020-01 00:00:00 No TAKE 1 TABLET BY MOUTH THREE TIMES A DAY NEE DED FOR MUSCLE SPASMS Marshal Amato solifenacin (VESICARE) 10 MG tablet 2019-10-12 10:50:24 Yes Q24H daily. Marshal Amato ALPRAZolam (XANAX) 1 MG tablet 2019-10-10 00:00:00 Yes Marshal Amato baclofen (LIORESAL) 10 MG tablet 2019-09-28 00:00:00 2019-09 00:00:00 No TAKE 1 TABLET BY MOUTH 3 TIMES A DAY NEEDED FOR MUSCLE SPASMS Marshal Amato gabapentin (NEURONTIN) 300 mg capsule 2019-09-05 00:00 :00 2020-01-08 00:00:00 No Take 2 pills TID [facility] baclofen (LIORESAL) 10 MG tablet 2019-09-05 00:00:00 2019-09 00:00:00 No Take 1 tab PO TID prn muscle spasms. Marshal Amato MYRBETRIQ 50 mg tablet extended release 24 hr 2019-08-13 00:00:0 0 Yes Marshal szymanski atenolol (TENORMIN) 100 MG tablet 2019-08-10 00:00:00 Yes Marshal Amato Meloxicam 15 MG Oral Tablet Meloxicam 15 MG Oral Tablet 2018-07-28 00:00:00 Yes TAB CHRISTENSEN M.D. 1 QD TAKE 1 TABLET DAILY [facility] Omeprazole 40 MG Oral Capsule Delayed Release Omeprazo le 40 MG Oral Capsule Delayed Release 2018-07-28 00:00:00 Yes TAB CHRISTENSEN M.D. 1 QD TAKE 1 CAPSULE DAILY [facility] gabapentin (NEURONTIN) 100 mg capsule 2018-07-06 00:00 :00 2019-09-05 00:00:00 No Take 2 pills TID Marshal Amato baclofen (LIORESAL) 10 MG tablet 2018-05-29 00:00:00 2019-08 00:00:00 No Take 1 tab PO TID prn muscle spasms. Marshal Amato Omeprazole 20 MG Oral Tablet Delayed Release Omeprazol e 20 MG Oral Tablet Delayed Release 2018-04-21 00:00:00 Yes TAB CHRISTENSEN M.D. 1 QD TAKE 1 TABLET DAILY [facility] Meloxicam 15 MG Oral Tablet Meloxicam 15 MG Oral Tablet 2018-04-21 00:00:00 Yes TAB CHRISTENSEN M.D. TAKE 1 TABLET DAILY MANJULA Kaur [facility] Meloxicam 15 MG Oral Tablet Meloxicam 15 MG Oral Tablet 2018-01-20 00:00:00 Yes TAB CHRISTENSEN M.D. 1 QD TAKE 1 TABLET DAILY [facility] Omeprazole 40 MG Oral Capsule Delayed Release Omeprazo le 40 MG Oral Capsule Delayed Release 2018-01-20 00:00:00 Yes TAB CHRISTENSEN M.D. 1 QD TAKE 1 CAPSULE DAILY [facility] tramadol hydrochloride 50 MG Oral Tablet 2017-06-02 14:56:00 Yes 50 mg = 1 tab, PO, Q6H, PRN Pain, X 5 day, # 20 tab, 0 Refill(s) [facility] gabapentin 100 MG Oral Capsule 2017-06-02 14:56:00 Yes 100 mg = 1 cap, PO, Q8H, # 42 cap, 0 Refill(s) Naldo jakel Ang Pneumovax 23 2017-06-02 14:00:00 No Notes: (Same as: Pneumovax 23) Refrigerate [facility] Verapamil 2017-06-02 14:00:00 No Notes: Do not crush or chew. (Same As: Calan SR, Isoptin SR) "Avoid grapefruit and grapefruit juice" [facility] Zoloft 2017-06-02 14:00:00 No Notes: (Same as: Zoloft) [facility] Protonix 2017-06-02 14:00:00 No Notes: Tablet should not be chewed or crushed. (Same as: Protonix) [facility] gabapentin 100 MG Oral Capsule 2017-06-02 05:00:00 No Notes: (Same as: Neurontin) [facility] Atenolol 50 MG Oral Tablet 2017-06-02 02:00:00 No Notes: (Same As:Tenormin) [facility] Fluticasone propionate 0.05 MG/ACTUAT Metered Dose Nasal Spr ay [Flonase] 2017-06-01 22:00:00 No Notes: (Same as: F jovaniase) [facility] Albuterol 0.833 MG/ML / Ipratropium Brom gerardo 0.167 MG/ML Inhalant Solution [DuoNeb] 2017-06-01 19:31:00 No Notes: (S geetha as: Duoneb) [facility] pneumococcal capsular polysaccharide typ e 1 vaccine / pneumococcal capsular polysaccharide type 10A vaccine / pneumococcal capsular polysaccharide type 11A vaccine / pneumococcal capsular polysaccharide type 12F vaccine / pneumococcal capsular polysacchar 2017-06-01 14:00:00 No Notes: (Same as: Pneumovax 23) Refrigerate [facility] denys Sucralfate 100 MG/ML Oral Suspension [Carafate] 2017-06-01 07:56 :00 No Notes: May interfere w/enter al feeds - Take 1 hr before or 2 hr after antacids, dairy pdt, meals & minerals - On empty stomach. For patients unable to swallow tablet, dissolve in 10mL - 30mL of water or juice and stir before giving. (Same As: Carafate) Hawk Jorge ferreiradenys Saline Flush 0.9% 2017-06-01 00:59:00 No Notes: (Same as: BD Posiflush) Hawk Fry Sodium Chloride 0.154 MEQ/ML Injectable Solution 2017-06-01 00:5 9:00 No 1,000 mL, Rate: 125 ml/hr, I nfuse over: 8 hr, Route: IV, Dosing Weight 103.636 kg, Total Volume: 1,000, Start date: 05/31/17 19:59:00 CDT, Duration: 30 day, Stop date: 06/30/17 19:58:00 CDT Kenrick Monsivaisann Acetaminophen 325 MG / Hydrocodone Bitartrate 5 MG Oral Tabl et 2017-06-01 00:59:00 No Notes: (Sa me as: [place] 325/5) Do not exceed 4gm/day of acetaminophen. [facility] [place] Morphine 2017-06-01 00:59:00 No 2 mg, 1 mL, Route: IVP, Drug form: SOLN, Q4H, Dosing Weight 103.636, kg, PRN Pain Score 7-10, Start date: 05/31/17 19:59:00 CDT, Duration: 30 day, Stop date: 06/30/17 19:58:00 CDT [facility] Ondansetron 2017-06-01 00:59:00 No Notes: (Same as: Sefreino) MEDICATION WASTE Product Size: 4 mg Product Wasted: ___ mg Hawk Fry MethylPREDNISolone Dose Pack 4 mg oral tablet 2017-06-01 00:59:0 0 No See Instructions, PO, Daily, Use as directed on label. , # 1 Pack, 0 Refill(s) Hawk Fry verapamil 180 mg oral tablet, extended release 2017-06-01 00:54: 00 Yes 180 mg = 1 tab, PO, Daily, # 30 tab, 0 Refill(s) Hawk Fry Sucralfate 100 MG/ML Oral Suspension [Carafate] 2017-06-01 00:54 :00 Yes 1 gm = 10 ml, PO, QID-Before Meals, # 400 ml, 0 Refill (s) [facility] Atenolol 50 MG Oral Tablet 2017-06-01 00:54:00 Yes 50 mg = 1 tab, PO, Bedtime, # 30 tab, 0 Refill(s) Chadwick Fry Fluticasone propionate 0.05 MG/ACTUAT Metered Dose Nasal Spr ay [Flonase] 2017-06-01 00:54:00 Yes 1 spray, NASAL, BI D, # 16 gm, 0 Refill(s) Hawk Fry 200 ACTUAT Albuterol 0.09 MG/ACTUAT / Ip ratropium [place] 0.018 MG/ACTUAT Metered Dose Inhaler [Combivent] 2017-06-01 00:54:00 Yes See Instructions, 0 Refill(s) Hawk cobos pantoprazole 40 MG Enteric Coated Tablet [Protonix] 06-01 00:54:00 Yes 40 mg = 1 tab, PO, Daily, # 30 tab, 0 Re fill(s) Hawk Fry Sertraline 50 MG Oral Tablet [Zoloft] 2017-06-01 00:54:00 Y es 50 mg = 1 tab, PO, Daily, 0 Refill(s) Hawk Fry Sodium Chloride 0.154 MEQ/ML Injectable Solution 2017-05-31 22:2 3:00 No 1,000 mL, Rate: 100 ml/hr, I nfuse over: 10.2 hr, Route: IV, Dosing Weight 103.636 kg, Total Volume: 1,015.2, Start date: 05/31/17 17:23:00 CDT, Duration: 1 doses or times, Stop date: 06/01/17 3:34:00 CDT Hawk Rushid 2017-05-31 22:12:00 No 0.5 mg, 0.5 mL, Route: IV, Drug form: INJ, ONCE, Dosing Weight 103.636, kg, Start date: 05/31/17 17:12:00 CDT, Stop date: 05/31/17 17:12:00 CDT Shayla Fry Dilaudid 2017-05-31 18:47:00 No 0.5 mg, 0.5 mL, Route: IV, Drug form: INJ, ONCE, Dosing Weight 103.636, kg, Start date: 05/31/17 13:47:00 CDT, Stop date: 05/31/17 13:47:00 CDT Shayla Fry Morphine 2017-05-31 17:07:00 No Not es: (Same as:MORPhine Sulfate) Hawk Fry Zofran 2017-05-31 17:07:00 No Notes: (Same as: Zoanne) MEDICATION WASTE Product Size: 4 mg Product Wasted: ___ mg Hawk Fry Sodium Chloride 0.154 MEQ/ML Injectable Solution 2017-05-31 17:0 7:00 No 1,000 mL, 1,000 ml/hr, Infus e Over: 1 hr, Route: IV, 1,000, Drug form: INJ, ONCE, Priority: STAT, Dosing Weight 103.636 kg, Start date: 05/31/17 12:07:00 CDT, Duration: 1 doses or times, Stop date: 05/31/17 12:07:00 CDT Hawk Fry traMADol (ULTRAM) 50 mg tablet 2017-05-28 00:00:00 Yes TK 1 T PO EVERY 8 HOURS PRN Marshal Amato pantoprazole (PROTONIX) 40 MG EC tablet 2017-05-18 00:00:00 Ye s Marshal Amato fluticasone (FLONASE) 50 mcg/actuation nasal spray 2017-04 00:00:00 Yes Marshal Cruz thodi atenolol (TENORMIN) 50 MG tablet 2017-04-24 00:00:00 2019-09 00:00:00 No Marshal aviles COMBIVENT RESPIMAT 20-100 mcg/actuation mist inhaler 2 00:00:00 Yes INHALE 1 PUFF BY MOUTH 4 TIMES A DAY Marshal Amato verapamil sustained release (CALAN-SR) 180 MG SR tablet 2017-04-08 00:00:00 Yes Marshal szymanski sertraline (ZOLOFT) 50 MG tablet 2017-04-08 00:00:00 Yes Marshal Amato Vital Signs Vital Name Observation Time Observation Value Comments Source Systolic blood pressure 2019-10-12 10:39:00 147 mm[Hg] Marshal Amato Diastolic blood pressure 2019-10-12 10:39:00 84 mm[Hg] Marshal Amato Heart rate 2019-10-12 10:39:00 60 /min Marshal Amato Body height 2019-10-12 10:39:00 162.6 cm Marshal Amato Body weight 2019-10-12 10:39:00 112.946 kg [facility] BMI 2019-10-12 10:39:00 42.74 kg/m2 [facility] Temperature Oral (F) 2017-06-02 12:06:00 98.2 F [facility] [place] Heart Rate 2017-06-02 12:06:00 [facility] [place] Respitory Rate 2017-06-02 12:06:00 [facility] Systolic (mm Hg) 2017-06-02 12:06:00 Naldo rial Ang Diastolic (mm Hg) 2017-06-02 12:06:00 [facility] [place] Systolic (mm Hg) 2017-06-02 08:48:00 Naldo rial [place] Diastolic (mm Hg) 2017-06-02 08:48:00 Mem [facility] [place] Respitory Rate 2017-06-02 08:48:00 [facility] [place] Heart Rate 2017-06-02 08:48:00 [facility] Temperature Oral (F) 2017-06-02 08:48:00 98.2 F [facility] Systolic (mm Hg) 2017-06-02 04:16:00 Naldo rial [place] Diastolic (mm Hg) 2017-06-02 04:16:00 Mem [facility] [place] Respitory Rate 2017-06-02 04:16:00 Memori al [facility] Temperature Oral (F) 2017-06-02 04:16:00 98.8 F [facility] [place] Heart Rate 2017-06-02 04:16:00 [facility] Height 2017-06-01 00:46:00 160.02 cm [facility] [place] Weight 2017-06-01 00:46:00 [facility] [place] BMI Calculated 2017-06-01 00:46:00 [facility] [place] Weight 2017-05-31 17:01:00 [facility] Height 2017-05-31 17:01:00 160.02 cm [facility] BMI Calculated 2017-05-31 17:01:00 [facility] [place] Procedures Procedure Date / Time Performed Performing Clinician [facility] e US BREAST LEFT LIMITED 2019-11-09 09:18:01 Jose J Rodriguez MAMMO BREAST DIAGNOSTIC TOMOSYNTHESIS LEFT 2019-11-09 08:26: 07 Jose J Rodriguez MAMMO BREAST SCREEN TOMOSYNTHESIS BILATERAL 2019-10-19 11:40 :00 Jose J Rodriguez PAP W/AGE BASED SCREENING PROTOCOLS 2019-10-12 11:15:00 Jose J Rodriguez THINPREP TIS PAP 2019-10-12 11:15:00 Jose J Rodriguez HPV MRNA E6/E7 REFLEX HPV 16, 18/45 (REFLEX) 2019-10-12 11: 15:00 Jose J Rodriguez HI INJECT TRIGGER POINT, 1 OR 2 2019-09-05 14:30:00 Eduardo Nolasco [U] XRAY HAND MIN 3 VWS LEFT [id number] 2019-06-08 00:00:00 [facility] [U] XRAY FINGER(S) - 2 VWS MIN. LEFT [id number] 2018-01-20 00:00:00 [facility] Plan of Care Planned Activity Planned Date Details Comments Source Future Scheduled Test 2021-11-09 00:00:00 BREAST CANCER SCRE ENING [code = BREAST CANCER SCREENING] [facility] Future Scheduled Test 2020-07-29 00:00:00 INFLUENZA VACCINE [code = INFLUENZA VACCINE] [facility] Scheduled Test 2015 00:00:00 COLONOSCOPY SCREEN ING [code = COLONOSCOPY SCREENING] [facility] Scheduled Test 2015 00:00:00 SHINGLES VACCINES (#1) [code = SHINGLES VACCINES (#1)] [facility] Future Scheduled Test 1986 00:00:00 Screening for cedrick gnant neoplasm of cervix (procedure) [code = 006363900] Marshal Lopez Encounters Start Date/Time End Date/Time Encounter Type Admission Type Attendi [facility] Care Department Encounter ID Source 2020-08-11 16:44:06 2020-08-11 16:44:06 Outpatient BRICE FISH MDA, MDA [id number] MD Monae 2020-05-23 15:56:52 2020-05-23 16:23:24 Outpatient BRICE FISH MDA MDA [id number] MD Monae 2019-08-21 12:00:00 2019-09-19 23:59:00 Outpatient Tab Christensen [id number] 2019-09-14 08:30:00 2019-09-14 08:30:00 Appointment; YOU CHRISTENSEN M.D. MANSOUR, [place], M.D. [facility] [id number] [facility] 2019-07-17 12:00:00 2019-08-15 23:59:00 Outpatient Tab Christensen [id number] 2019-08-05 00:00:00 2019-08-05 [facility] [id number] 2019-07-13 08:30:00 2019-07-13 08:30:00 Appointment; YOU CHRISTENSEN M.D. MANSOUR, [place], M.D. [facility] [id number] [facility] 2019-06-08 09:30:00 2019-06-08 09:30:00 Appointment; YOU CHRISTENSEN M.D. MANSOUR, [place], M.D. [facility] Orthopedics at [facility] [id number] [facility] 2018-12-27 09:30:00 2018-12-27 09:30:00 Appointment; YOU CHRISTENSEN M.D. MANSOUR, [place], M.D. [facility] [id number] [facility] 2018-07-28 09:30:00 2018-07-28 09:30:00 Appointment; YOU CHRISTENSEN M.D. MANSOUR, [place], M.D. [facility] Orthopedics at [facility] [id number] [facility] 2018-06-09 13:30:00 2018-06-09 13:30:00 Appointment; YOU CHRISTENSEN M.D. MANSOUR, [place], M.D. [facility] Orthopedics at [facility] [id number] [facility] 2018-04-21 09:30:00 2018-04-21 09:30:00 Appointment; YOU CHRISTENSEN M.D. MANSOUR, [place], M.D. [facility] Orthopedics at [facility] [id number] [facility] 2018-01-20 16:00:00 2018-01-20 16:00:00 Appointment; YOU CHRISTENSEN M.D. MANSOUR, [place], M.D. [facility] Orthopedics at [facility] [id number] [facility] 2017-09-21 13:17:00 2017-09-21 23:59:00 Outpatient Dasia Devine [id number] 2017-05-31 11:59:00 2017-06-02 10:51:00 [id number] 2016-10-01 07:34:00 2016-10-01 23:59:00 Outpatient Halley Rico [facility] [id number] 2016-07-30 09:25:00 2016-07-30 23:59:00 Outpatient Dasia Devine [id number] Results Test Description Test Time Test Comments Results Result Comments Source - MRI L-SPINE W PANTERA GARRETT 2020-05-23 10:23:00 FAX: Remy Cerda MD [phone] [place]: St: REG -- Name: MARILYN FABIAN [facility] : 1965 Age/S: 54/F [address] [place] [address] Unit #: [id number] Loc: [place] [id number] Phys: Remy Bruce MD Acct: [id number] Dis Date: Status: REG CLI PHONE #: [phone] Exam Date: 05/23/2020926 FAX #: [phone] Reason: LBP EXAMS: CPT CODE: [id number] MRI L-SPINE W WO CON 17769 Study: - MRI L-SPINE W WO CON 05/23/2020 8:23 AM Patient Name: MARILYN FABIAN MR: [id number] : 1965; Age: 54 years y/o Female Ordering Physician: Remy Bruce MD Clinical Indication: LBP Comparison: None TECHNIQUE: Multiplanar T1, T2, and STIR weighted noncontrast MRI of the lumbar spine was performed on the 1.5 Marychuy magnet. Post-contrast sequences were also obtained. Contrast: Dotarem 23mL FINDINGS: ALIGNMENT AND GENERAL ASSESSMENT: Five lumbar type vertebral bodies are assumed for purpose of this dictation with conus medullaris termination at L1-L2. Mildly degenerated discs are seen throughout the lumbar spine. Mild enhancement is seen about the right L2-L3, bilateral L3-L4, bilateral L4- L5, and bilateral L5-S1 levels No cord signal abnormality identified. DISC SPACES: L1-L2: No significant disc protrusion, spinal canal narrowing, or neural foraminal narrowing. L2- L3: No foraminal or canal stenosis. L3-L4: Symmetric disc bulge and facet arthropathy with mild left foraminal stenosis L4- L5: Symmetric disc bulge, ligamentum flavum thickening, and facet arthropathy L5-S1: Facet arthropathy without foraminal or canal stenosis. IMPRESSION: PAGE 1 Signed Report (CONTINUED) FAX: Remy Cerda MD [phone] [place]: St: REG -- Name: MARILYN FABIAN [facility] : 1965 Age/S: 54/F [address] [place] [address] Unit #: [id number] Loc: [place] [address] Phys: Remy Bruce MD Acct: [id number] Dis Date: Status: REG CLI PHONE #: [phone] Exam Date: 05/23/2020 09 FAX #: [phone] Reason: LBP EXAMS: CPT CODE: [id number] MRI L-SPINE W WO CON 77731 <Continued> 1. Mild degenerative neural foraminal stenosis at the left L3-L4 level. 2. Facet arthropathy with mild synovitis in the lower lumbar spine. SL: [id number] at 1023 Reported and signed by: Indra Prince M.D. CC: Remy Bruce Technologist: RAVINDRA Kruse)(MR) Trnscrd Date/Time/By: 05/23/2020 (2864) : By: [email or web address] Orig Print D/T: S: 05/23/2020 (6832) PAGE 2 Signed Report - US ABDOMEN COMPLETE 2020-05-23 09:01:00 Name : MARILYN FABIAN [facility] : 1965 Age/S: 54 / F [address] [place] [address] Unit #: [id number] Loc: [place] [address] Phys: Remy Bruce MD Acct: [id number] Dis Date: Status: REG CLI PHONE #: [phone] Exam Date: 05/23/2020 075 FAX #: [phone] Reason: ABDOMEN PAIN. EXAMS: CPT CODE: [id number] US ABDOMEN COMPLETE 97005 - US ABDOMEN COMPLETE: 05/23/2020 7:15 AM CLINICAL HISTORY: Abdominal pain. STUDY: Complete ultrasound of abdomen. COMPARISON: None. FINDINGS: Liver: Parenchymal echogenicity is unremarkable. No mass or intrahepatic biliary ductal dilation. Gallbladder: Surgically absent. Common bile duct is prominent at 8.7 mm in diameter. Sonographic Agarwal sign not present. Pancreas: Visualized portions are unr emarkable. Spleen: Normal. 11.8 cm. Kidneys: No pelvicalyceal dilatation. Right kidney measuring 9.9 cm in length; left kidney measuring 10.4 cm in length. Aorta Inferior vena cava: Inferior vena cava is unremarkable. Proximal aorta is unremarkable. Mid/distal aorta is obscured by bowel gas artifact. Ascites: None. IMPRESSION: 1. Status post cholecystectomy. Prominent common bile duct is likely secondary to postcholecystectomy state. No definite visualization of a distal obstructing lesion. If there is concern for distal obstructing lesion, recommend further evaluation with MRI/MRCP. at 0901 Reported and signed by: Alvin Tay M.D. CC: Remy Bruce Technologist: Rebecca Horner Trnmtb Date/Time: 05/23/2020 (900) [id number] Orig Print D/T: S: 05/23/2020 (903) Probe: PAGE 1 Signed Report Mammo Breast Diagnostic Tomosynthesis Left 2019-11-09 09:31:13 PROCEDURE: MAMMO BREAST DIAGNOSTIC TOMOSYNTHESIS LEFT, US BREAST LEFT LIMITEDComputer aided detection with tomosynthesis was utilized for the interpretation. HISTORY: 53-year-old female recalled from screening for an abnormal left mammogram. COMPARISON: 10/19/2019-07/30/2016. DENSITY: The breast are almost entirely fatty. MAMMOGRAM: Additional evaluation was performed for the asymmetry in the right l ateral breast. On the full-field digital left LM view, there is no definitive correlate for the previously noted asymmetry and spot compression on the CC view demonstrate effacement of fibroglandular tissues. ULTRASOUND: Targeted left breast ultrasound of the lateral breast demonstrates benign fatty tissue. IMPRESSION: No mammographic or sonographic evidence of malignancy. RECOMMENDATION: Correlation with physical exam and annual mammography. BI-RADS 1: NEGATIVE DWS01 Marshal Amato US Breast Left Limited 2019-11-09 09:31:13 PROCE DURE: MAMMO BREAST DIAGNOSTIC TOMOSYNTHESIS LEFT, US BREAST LEFT LIMITEDComputer aided detection with tomosynthesis was utilized for the interpretation. HISTORY: 53-year-old female recalled from screening for an abnormal left mammogram. COMPARISON: 10/19/2019- 07/30/2016. DENSITY: The breast are almost entirely fatty. MAMMOGRAM: Additional evaluation was performed for the asymmetry in the right lateral breast. On the full-field digital left LM view, there is no definitive correlate for the previously noted asymmetry and spot compression on the CC view demonstrate effacement of fibroglandular tissues. ULTRASOUND: Targeted left breast ultrasound of the lateral breast demonstrates benign fatty tissue. IMPRESSION: No mammographic or sonographic evidence of malignancy. RECOMMENDATION: Correlation with physical exam and annual mammography. BI-RADS 1: NEGATIVE DWS01 Marshal Amato Mammo Breast Screen Tomosynthesis Bilateral 2019-10-31 11:27 :29 Test Item VARGAS (test code = VARGAS) PROCEDURE: MAMMO BREAST SCRE EN TOMOSYNTHESIS BILATERAL Computer aided detection was utilized for the interpretation. Bilateral digital screening mammogram was performed with tomosynthesis. COMPARISON EXAMS: 2017 and 2015 DENSITY: The breast tissue is almost entirely fatty. FINDINGS: No suspicious finding is seen in the right breast. There is an asymmetry with the suggestion of associated architectural distortion in the lateral left breast posterior depth on the CC views. It is difficult to determine if this may correspond to a surgical scar site, marked with a linear marker in the upper outer quadrant middle depth. IMPRESSION: Left breast asymmetry with possible distortion. Additional imaging evaluation is recommended with left breast diagnostic tomosynthesis mammogram and possible ultrasound exam. BI-RADS 0: INCOMPLETE - need additional imaging evaluation This facility is accredited by the [employer] for Mammography. A negative x-ray report should not delay biopsy if a dominant or clinically suspicious mass is present. Not all cancers are identified by x-ray. DWS01 Lab Interpretation (test code = 53546-1) Abnormal Marshal AmatoTHINPREP TIS [id number] 15:27:00* Test Item Value Reference Range Interpretation Comments Clinical information (test code = 29160-6) None given Date of last menstrual period (test code = 8665-2) NONE GIVEN Prev. pap: (test code = 45334-9) NONE GIVEN Prev. bx: (test code = 98938-5) NONE GIVEN Source (test code = 38004-1) None given Statement of adequacy (test code = 34146-3) Satisfactory for evaluation.Endocervical/transformation zone component absent. Interpretation/result: (test code = 58914-1) Negative for intraepithelial lesion or malignancy. Comment (test code = 84318-2) This Pap test has been evaluated with computerassisted technology. Chemical Processing Equipment Repairer (test code = 95499-5) KXJ, CT(ASCP)CT screening location: [address], [facility] [address] Comment (test code = 1710943) EXPLANATORY NOTE: The Pap is a screening test for cervical cancer. It is not a diagnostic test and is subject to false negative and false positive results. It is most reliable when a satisfactory sa mple, regularly obtained, is submitted with relevant clinical findings and history, and when the Pap result is evaluated along with historic and current clinical information. SHEA (test code = SHEA) Performing Organization Info rmation: Site ID: RGA Name: [facility] Address: [address] [place] [id number] Director: Khoa AmatoHPV mRNA E6/E7 REFLEX HPV 16, 18/[id number] 15:27:00* Test Item Value Reference Range Interpretation Comments HPV mRNA e6/e7 (test code = 31812-7) Not Detected Not Detected This test was performed using the APTIMA HPV Assay ([employer] This assay detects E6/E7 viral messenger RNA (mRNA) from 14high-risk HPV types (16,18,31,33,35,39,45,51,52,56,58,59,66,68). The analytical performance characteristics ofthis assay have been determined by [employer]. The modifications have not beencleared or approved by the FDA. This assay hasbeen validated pursuant to the CLIA regulationsand is used for clinical purposes. SHEA (test code = SHEA) Performing Organization Info rmation: Site ID: IG Name: [facility] Address: [address] [place] [phone] Director: Dr. Khoa AmatoPAAlfonso W/AGE BASED SCREENING [id number] 15:27:00 CommentComment: This order for age-based cervical cancer and STI screening follo ws ACOG guidelines(PB 168, 140,QDK634). See individual assays for performing sit e location. [facility] IIPerforming Organization Information: S ite ID: IG Name: [facility] Address: [address] [place] [id number] Director: Dr. Khoa L [facility]1 or 2 Trigger Point Injection: Bilateral [id number] 14:30:00Davy Nolasco III, MD 09/05/2019 3:00 PM1 or 2 Trigger Point Injection: Bilateral lumbarDate/Time: 09/05/2019 2:51 PMPerformed by: Davy Nolasco III, MDAuthorized by: Davy Nolasco III, MD Consent: Consent obtained: Verbal Consent given by: PatientIndications: Indications: Pain reliefLocat ion: Therapeutic Trigger Point Injection: Single/multiple trigger point(s): 1 -2 muscle groups Location: back Back location injected: Bilateral lumbar P latelet Rich Plasma Used: no PRP Used EMG Guidance Used: no emg guidance usedRig ht side:Right Lumbar Medications administered: 3 mg betamethasone acetate & sodium phosphate 6 mg/mL; 6 mg betamethasone acetate & sodium phosphate 6 mg/mL; 1 mL lidocaine 10 mg/mL (1 %); 0.5 mL lidocaine 10 mg/mL (1 %) Left side:Left Lumbar Medications administered: 3 mg betamethasone acetate & sodium phosphate 6 mg/mL; 6 mg betamethasone acetate & sodium phosphate 6 mg/mL; 1 mL lidocaine 10 mg/mL (1 %); 0.5 mL lidocaine 10 mg/mL (1 %) Pre-procedure details: Neurovascular status: intact Skin preparation: AlcoholProcedure details: Syringe type: Luer lock syringe Needle gauge: 25 GPost-procedure details: Patient tolerance of procedure: Tolerated well, no immediate complications [facility] W/AUTO [id number] 07:49:00* Test Item Value Reference Range Interpretation Comments WHITE BLOOD CELL (test code = WBC) 8.30 x10 3/uL 4.5-11.0 RED BLOOD CELL (test code = RBC) 4.26 x10 6/uL 3.54-5.02 N HEMOGLOBIN (test code = HGB) 11.5 g/dL 11.0-15.0 N HEMATOCRIT (test code = HCT) 36.1 % 33.0-45.0 N MEAN CELL VOLUME (test code = MCV) 84.7 fL 81.0-99.0 N MEAN CELL HGB (test code = MCH) 27.0 pg 27.0-33.0 N MEAN CELL HGB CONCETRATION (test code = MCHC) 31.9 g/dL 33.0-37. 0 L RED CELL DISTRIBUTION WIDTH CV (test code = RDW) 12.8 % 11.5- 14.5 N RED CELL DISTRIBUTION WIDTH SD (test code = RDW-SD) 39.4 fL 37 .0-54.0 N PLATELET COUNT (test code = PLT) 248 x10 3/uL 150-400 N MEAN PLATELET VOLUME (test code = MPV) 10.9 fL 7.0-9.0 H NEUTROPHIL % (test code = NT%) 76.9 % 56.0-77.0 N IMMATURE GRANULOCYTE % (test code = IG%) 0.4 % 0.0-2.0 N LYMPHOCYTE % (test code = LY%) 16.5 % 14.0-32.0 N MONOCYTE % (test code = MO%) 6.1 % 4.8-9.0 N EOSINOPHIL % (test code = EO%) 0.0 % 0.3-3.7 L BASOPHIL % (test code = BA%) 0.1 % 0.0-2.0 N NUCLEATED RBC % (test code = NRBC%) 0.0 % 0-0 N NEUTROPHIL # (test code = NT#) 6.38 x10 3/uL 2.0-7.6 N IMMATURE GRANULOCYTE # (test code = IG#) 0.03 x10 3/uL 0.00-0.03 N LYMPHOCYTE # (test code = LY#) 1.37 x10 3/uL 1.0-3.8 N MONOCYTE # (test code = MO#) 0.51 x10 3/uL 0.1-0.8 N EOSINOPHIL # (test code = EO#) 0.00 x10 3/uL 0.0-0.2 N BASOPHIL # (test code = BA#) 0.01 x10 3/uL 0.0-0.2 N NUCLEATED RBC # (test code = NRBC#) 0.00 x10 3/uL 0.0-0.1 N MANUAL DIFF REQUIRED (test code = MDIFF) NO BASIC METABOLIC [id number] 09:21:00* Test Item Value Reference Range Interpretation Comments SODIUM (test code = NA) 142 mEq/L 134-147 N POTASSIUM (test code = K) 3.8 mEq/L 3.4-5.0 N CHLORIDE (test code = CL) 109 mEq/L 100-108 H CARBON DIOXIDE (test code = CO2) 28 mEq/L 21-33 N ANION GAP (test code = GAP) 9 0-20 N GLUCOSE (test code = GLU) 75 mg/dL 70-110 N BLOOD UREA NITROGEN (test code = BUN) 10 mg/dL 7-18 N GLOMERULAR FILTRATION RATE (test code = GFR) 75.0 90-95 L Units of measure = ml/min/1.73 m2 CREATININE (test code = CREAT) 0.8 mg/dL 0.6-1.3 N CALCIUM (test code = CA) 9.1 mg/dL 8.0-10.5 N AG HEPATITIS B [id number] 11:26:00* Test Item Value Reference Range Interpretation Comments AG HEPATITIS B SURFACE (test code = HBSAG) NON REACTIVE INDEX NonRe active AB HEPATITIS [id number] 11:26:00* Test Item Value Reference Range Interpretation Comments AB HEPATITIS C (test code = HCVAB) NON REACTIVE INDEX NON REACT. AB HIV 1 11:26:00* Test Item Value Reference Range Interpretation Comments AB HIV 1 2 (test code = PVJ66CU) NONREACTIVE INDEX NONREACTIVE AG HEPATITIS B [id number] 11:20:00* Test Item Value Reference Range Interpretation Comments AG HEPATITIS B SURFACE (test code = HBSAG) NON REACTIVE INDEX NonRe active AB HEPATITIS [id number] 11:20:00* Test Item Value Reference Range Interpretation Comments AB HEPATITIS C (test code = HCVAB) NON REACTIVE INDEX NON REACT. AB HIV 1 11:20:00* Test Item Value Reference Range Interpretation Comments AB HIV 1 2 (test code = LCM74BJ) INDEX NONREACTIVE - XR CHEST 2 [id number] 11:08:00 FAX: Nataliia Hughes [phone] [place]: DENAE St: PRE [facility] [birth year] Age/S: 53/F [address] [place] [address] Blvd Unit #: [id number] Loc: [place] [address] Phys: Anastacia Ugarte MD Acct: [id number] Dis Date: Status: PRE SD PHONE #: [phone] Exam Date: 05/04/2019 1039 FAX #: [phone] Reason: RECTOCELE EXAMS: CPT CODE: [id number] XR CHEST 2 V 77838 CHEST TWO VIEW HISTORY: Rectocele, preop. Comparison made to prior chest x-ray dated 1 01/06/07. FINDINGS: The lungs are clear. The heart si ze and pulmonary vascularity are normal. Bony thorax shows no acute abnorm ality. IMPRESSION: No active process. SL:01 at 1108 Reported and signed by: Davy Jones M.D. CC: Anastacia Szymanski echnologist: Stephanie Brooks, RT(R), RTT Trnscrd Date /Time/By: 05/04/2019 (1108) : By: Ry Orig Print D/T: S: 019 (1111) PAGE 1 Signed Report AG HEPATITIS B [id number] 10:55:00* Test Item Value Reference Range Interpretation Comments AG HEPATITIS B SURFACE (test code = HBSAG) NON REACTIVE INDEX NonRe active AB HEPATITIS [id number] 10:55:00* Test Item Value Reference Range Interpretation Comments AB HEPATITIS C (test code = HCVAB) INDEX NON REACT. AB HIV 1 10:55:00* Test Item Value Reference Range Interpretation Comments AB HIV 1 2 (test code = JVL97SM) INDEX NONREACTIVE PROTHROMBIN [id number] 10:33:00* Test Item Value Reference Range Interpretation Comments PROTHROMBIN TIME PATIENT (test code = PTP) 11.8 SECONDS 9.3-12.9 N INTERNATIONAL NORMAL RATIO (test code = INR) 1.0 0.8-1.2 N TARGET INR BY INDICATION Indication INR1. Prophylaxis of venous thrombosis 2.0 - 3.0 (orthopedic surgery), Prophylaxis of venous thrombosis (other than high-risk surgery), Treatment of Deep Vein Thrombosis/Pulmonary Embolism, Prevention of systemic embolism - Tissue heart valves, Acute Myocardial Infarction (to prevent systemic embolism), Valvular heart disease, Atrial Fibrillation, Bileaflet mechanical valve in aortic position.2. Mechanical prosthetic valves (high risk), 2.5 - 3.5 Presence of Lupus Anticoagulant or Antiphospholipid Antibodies, Prevention of systemic embolism - Acute Myocardial Infarction (to prevent recurrent infarct). THROMBOPLASTIN TIME [id number] 10:33:00* Test Item Value Reference Range Interpretation Comments THROMBOPLASTIN TIME PARTIAL (test code = PTT) 33.8 Seconds 25.0-39. 5 N Therapeutic Range: 50.4 - 88.3 Seconds Effective 03/13/2019 URINALYSIS [id number] 10:31:00* Test Item Value Reference Range Interpretation Comments UA COLOR (test code = COLU) YELLOW YEL/STRAW UA APPEARANCE (test code = APPU) SL CLOUDY CLEAR UA GLUCOSE DIPSTICK (test code = DGLUU) NEGATIVE NEGATIVE UA BILIRUBIN DIPSTICK (test code = BILU) NEGATIVE NEGATIVE UA KETONE DIPSTICK (test code = KETU) NEGATIVE NEGATIVE UA SPECIFIC GRAVITY (test code = SGU) 1.006 1.005-1.030 N UA BLOOD DIPSTICK (test code = ORQUIDEA) NEGATIVE NEGATIVE UA PH DIPSTICK (test code = TY) 6.0 5.0-7.0 N UA PROTEIN DIPSTICK (test code = PROU) NEGATIVE NEGATIVE UA UROBILINIOGEN DIPSTICK (test code = URO) 0.2 mg/dL 0.2-1.0 UA NITRITE DIPSTICK (test code = CHRISTOPHER) NEGATIVE NEGATIVE UA LEUKOCYTE ESTERASE DIPSTICK (test code = LEUU) TRACE NEGA TIVE A UA WBC (test code = WBCU) 0-3 WBC/HPF 0-3 UA RBC (test code = RBCU) 0-3 RBC/HPF 0-3 UA BACTERIA (test code = BACU) TRACE /HPF NONE SEEN UA SQUAMOUS CELLS (test code = SQU) 0-5 /HPF NONE SEEN BASIC METABOLIC [id number] 10:29:00* Test Item Value Reference Range Interpretation Comments SODIUM (test code = NA) 142 mEq/L 134-147 N POTASSIUM (test code = K) 4.0 mEq/L 3.4-5.0 N CHLORIDE (test code = CL) 109 mEq/L 100-108 H CARBON DIOXIDE (test code = CO2) 29 mEq/L 21-33 N ANION GAP (test code = GAP) 8 0-20 N GLUCOSE (test code = GLU) 83 mg/dL 70-110 N BLOOD UREA NITROGEN (test code = BUN) 13 mg/dL 7-18 N GLOMERULAR FILTRATION RATE (test code = GFR) 87.5 90-95 L Units of measure = ml/min/1.73 m2 CREATININE (test code = CREAT) 0.7 mg/dL 0.6-1.3 N CALCIUM (test code = CA) 8.6 mg/dL 8.0-10.5 N CBC W/AUTO [id number] 10:18:00* Test Item Value Reference Range Interpretation Comments WHITE BLOOD CELL (test code = WBC) 3.98 x10 3/uL 4.5-11.0 L RED BLOOD CELL (test code = RBC) 4.42 x10 6/uL 3.54-5.02 N HEMOGLOBIN (test code = HGB) 11.8 g/dL 11.0-15.0 N HEMATOCRIT (test code = HCT) 37.7 % 33.0-45.0 N MEAN CELL VOLUME (test code = MCV) 85.3 fL 81.0-99.0 N MEAN CELL HGB (test code = MCH) 26.7 pg 27.0-33.0 L MEAN CELL HGB CONCETRATION (test code = MCHC) 31.3 g/dL 33.0-37. 0 L RED CELL DISTRIBUTION WIDTH CV (test code = RDW) 13.1 % 11.5- 14.5 N RED CELL DISTRIBUTION WIDTH SD (test code = RDW-SD) 40.6 fL 37 .0-54.0 N PLATELET COUNT (test code = PLT) 226 x10 3/uL 150-400 N MEAN PLATELET VOLUME (test code = MPV) 10.2 fL 7.0-9.0 H NEUTROPHIL % (test code = NT%) 55.2 % 56.0-77.0 L IMMATURE GRANULOCYTE % (test code = IG%) 0.3 % 0.0-2.0 N LYMPHOCYTE % (test code = LY%) 34.2 % 14.0-32.0 H MONOCYTE % (test code = MO%) 6.5 % 4.8-9.0 N EOSINOPHIL % (test code = EO%) 3.0 % 0.3-3.7 N BASOPHIL % (test code = BA%) 0.8 % 0.0-2.0 N NUCLEATED RBC % (test code = NRBC%) 0.0 % 0-0 N NEUTROPHIL # (test code = NT#) 2.20 x10 3/uL 2.0-7.6 N IMMATURE GRANULOCYTE # (test code = IG#) 0.01 x10 3/uL 0.00-0.03 N LYMPHOCYTE # (test code = LY#) 1.36 x10 3/uL 1.0-3.8 N MONOCYTE # (test code = MO#) 0.26 x10 3/uL 0.1-0.8 N EOSINOPHIL # (test code = EO#) 0.12 x10 3/uL 0.0-0.2 N BASOPHIL # (test code = BA#) 0.03 x10 3/uL 0.0-0.2 N NUCLEATED RBC # (test code = NRBC#) 0.00 x10 3/uL 0.0-0.1 N MANUAL DIFF REQUIRED (test code = MDIFF) NO [U] XRAY FINGER(S) - 2 VWS MIN. RIGHT [id number] 11:29:00Images acquired, not reported on this accession number.[facility][U] XRAY FINGER(S) - 2 VWS MIN. LEFT [id number] 15:41:00Images acquired, not reported on this accession number.[facility] PhysiciansCHEM PANEL 2017-06-01 08:45:001.9[facility]ann[facility] [id number] 08:45:004.1[facility]annCHE[facility] [id number] 08:45:0013[facility]annCHEM [id number] 08:45:000.75[facility]annCHEM [id number] 08:45:0077[facility]annCHEM [id number] 08:45:0017[facility]annCHEM [id number] 08:45:008.4 [facility]ann[facility] [id number] 08:45:0029[facility]annCHEM PANEL 2017-06-01 08:45:0010.5[facility]annCHEM [id number] 08:45:59010Ldqpnnvd HermannCHEM XOJGJ6731-56-91 08:45:003.5[facility]annCHEM [id number] 08:45:10860Wpmclibd HermannCHEM [id number] 08:45:74803Ixuqvgea HermannCHEM FYBDC8258-05-66 08:45:68113Hzgiiyrq HermannCHEM RCPQR4680-88-63 08:45:001.3 [facility]ann[facility] [id number] 08:45:32799Mksasndy HermannCHEM PANEL 2017-06-01 08:45:003.5[facility]annCHEM QBDLP7396-01-41 08:45:002.7[facility]annCHEM [id number] 08:45:006.2[facility]annCHEM [id number] 08:45:0093[facility]annCHE[facility] EBWYX9252-63-11 08:45:001.0[facility] WWCXBOXOKH1141-22-02 08:45:004.58[facility] WoqvgubLSSQUGFEHY0755-05-23 08:45:00 32.9[facility] BwbqfylNPZDHKYWGC6263-48-96 08:45:0012.3[facility]annHEMATOLOGY 2017-06-01 08:45:0037.3[facility] JwzqrwrBEIHQJWMKC6395-01-05 08:45:0081.4[facility] GqzjtdpXRPTIUEESB1256-49-38 08:45:00* Test Item Value Reference Range Interpretation Comments MCH (test code = MCH) 26.8 pg 27.0-31.0 [facility] [id number] 08:45:008.0[facility]annHEMATOLOGY 2017-06-01 08:45:0015.2[facility] KewwhazIZVDZEAVNZ4201-47-06 08:45:31162Zqpnktos VojaehhEJNBLWFDSS7010-02-08 08:45:007.9[facility] ByfmutpBWQUVGDETE9639-09-63 08:45:0032.7[facility] ReyjuhvOVEFRNZHBX4925-20-70 08:45:006.7[facility] Ang WOGRZHWGCQ4296-85-01 08:45:0058.5[facility] QsupvhyCKEUBJGBGV4484-77-89 08:45:00 1.7[facility] RkmcfacPAQMHNNMBA1355-36-76 08:45:000.4[facility]annHEMATOLOGY 2017-06-01 08:45:004.6[facility] RlvazozDDSGOEBLKB5633-19-93 08:45:002.6[facility] WqnvhitGIONIIFURE8685-36-60 08:45:000.5[facility] FnynxfiRNJAKSWXWX5590-70-06 08:45:000.1[facility] HermannCHEM TLSLJ2581-88-51 17:41:01335Ueauayxk HermannCHEM MKOZH5797-96-04 17:41:0014[facility]annCHEM LPZIG3409-20-17 17:41:001.2 [facility]annCHEM IEIVP4552-36-88 17:41:003.0[facility] HermannCHEM PANEL 2017-05-31 17:41:0011.3[facility]annCHEM BBDYQ2554-61-49 17:41:000.3[facility]annCHEM SNQAA7328-67-61 17:41:0074[facility]annCHEM BKHEB4562-31-69 17:41:006.5[facility]annCHEM GRXEB3007-71-53 17:41:0034[facility] HermannCHEM QALWI6076-29-47 17:41:003.5[facility]annCHEM IEJWP8867-74-02 17:41:66546 [facility]annCHE[facility] QESRR7727-73-96 17:41:000.90[facility]annCHEM PANEL 2017-05-31 17:41:09260Xjprlaya HermannCHEM ZHDQE5590-25-59 17:41:003.3[facility]annCHEM ITSLT7248-18-68 17:41:0090[facility]annCHEM JYEXF3354-05-50 17:41:0013[facility]annCHEM IRZVJ8828-69-10 17:41:0017[facility]annCHEM WIMRM2819-35-82 17:41:37071Sqvpoxtr HermannCHEM PHDLN1919-41-10 17:41:0028 [facility]annCHEM MYKKM4880-60-73 17:41:009.1[facility] HermannHEMATOLOGY 2017-05-31 17:41:0012.6[facility] BlyuxyrYYWKFYXDAH6069-95-75 17:41:008.8[facility] BolecvfEUTMXELGTK8697-32-53 17:41:004.73[facility] JqhuftbISEUQFDZAQ4525-22-39 17:41:0038.5[facility] FngavdcGJNZDQTZQL1164-05-62 17:41:0081.3[facility] Ang OUCVMKWSNN9342-75-06 17:41:008.3[facility] BxgyrzzDXPKTBZPQK4663-99-37 17:41:79020 [facility] [id number] 17:41:0015.5[facility] 2017[facility] 17:41:00* Test Item Value Reference Range Interpretation Comments MCH (test code = MCH) 26.7 pg 27.0-31.0 [facility] [id number] 17:41:0032.9[facility] 2017-05-31 17:41:000.6[facility] [id number] 17:41:0024.4[facility] [id number] 17:41:000.1[facility] [id number] 17:41:007.0[facility] [id number] 17:41:000.8[facility] [id number] 17:41:000.6[facility] [id number] 17:41:005.9 [facility] [id number] 17:41:002.1[facility] 2017-05-31 17:41:0067.2[facility] [id number] 17:41:001 [facility] [id number] 17:41:00<1[facility] [id number] 17:41:00Negative (05/31/17 12:41 PM)[facility] [id number] 17:41:00Negative (05/31/17 12:41 PM)[facility] [id number] 17:41:00Negative *NA*(05/31/17 12:41 PM)[facility] [id number] 17:41:007.0[facility] [id number] 17:41:00 Negative (05/31/17 12:41 PM)[facility] [id number] 17:41:00 1.010[facility] [id number] 17:41:00Clear (05/31/17 12:41 PM) [facility] [id number] 17:41:00Negative (05/31/17 12:41 PM)[facility]
[2020-08-13] MEDS ORDERED: ACETAMINOPHEN 325 MG TAB PO ONE (13:30)
[2020-08-13] MEDS ORDERED: SODIUM CHLORIDE 0.9% 1000ML 1,000 ML IV SCH (13:30)
[2020-08-13] MEDS ORDERED: KETOROLAC TROMETHAMINE 30 MG/ML VIAL IV ONE (13:30)
--- NOTE | 2020-08-13 13:30 | Emergency Department Note ---
History of Present Illnes History of Present Illness Chief Complaint: COVID PUI History of Present Illness This is a 54 year old female Chief Complaint Comment PATIENT IN FROM HOME WITH COMPLAINTS OF FEVER, COUGH, AND CONGESTION X 1 WEEK; STATES WAS TESTED FOR COVID ON TUESDAY AND GOT NEGATIVE RESULTS, AND THAT LAST TUESDAY SHE GOT THE FLU SHOT. Historian: Patient Arrival Mode: [employer] Required: No Onset (how long ago): week(s) (1) Location: Chest Quality: cough Radiation: Reports non-radiation Severity: moderate Onset quality: gradual Duration (how long): week(s) (1) Timing of current episode: constant Progression: unchanged Chronicity: new Context: Denies recent illness, Denies recent surgery Relieving factors: none Exacerbating factors: none Associated symptoms: Reports denies other symptoms Treatments prior to arrival: none Past Medical/Family History Physician Review I have reviewed the patient's past medical and family history. Any updates have been documented here. Past Medical History Recent Fever: Yes Clinical Suspicion of Infectio: Yes New/Unexplained Change in Ment: No Past Medical History: Anxiety, Depression, GERD, Hyperlipedemia Other Medical History: acid reflux high cholesterol anxiety depression chronic right foot pain from surgery Other Surgery: gastric sleeve URINARY STENT RIGHT FOOT SURGERY Social History Smoking Cessation: Never Smoker Counseling Performed: No Alcohol Use: None Any Illegal Drug Use: No Other Last Tetanus: UTD Any Pre-Existing Lines (PICC,: No Review of Systems Review of Systems Constitutional: Reports as per HPI EENTM: Reports no symptoms Cardiovascular: Reports no symptoms Respiratory: Reports as per HPI, Reports cough Gastrointestinal: Reports no symptoms Genitourinary: Reports no symptoms Musculoskeletal: Reports no symptoms Integumentary: Reports no symptoms Neurological: Reports no symptoms Psychological: Reports no symptoms Endocrine: Reports no symptoms Hematological/Lymphatic: Reports no symptoms Physical Exam Related Data Allergies: Coded Allergies: Sulfa (Sulfonamide Antibiotics) (Verified Allergy, Severe, THROAT SWELLING, 08/13/20) codeine (Verified Allergy, Unknown, 08/13/20) Triage Vital Signs Vital Signs Date Time Temp Pulse Resp B/P (MAP) Pulse Ox O2 Delivery O2 Flow Rate FiO2 08/13/20 13:07 103.3 96 20 135/65 100 Room Air Vital signs reviewed: Yes Physical Exam CONSTITUTIONAL Constitutional: Present well-developed, Present well-nourished HENT HENT: Present normocephalic, Present atraumatic, Present oropharynx clear/moist, Present nose normal HENT L/R: Present left ext ear normal, Present right ext ear normal EYES Eyes: Reports PERRL, Reports conjunctivae normal NECK Neck: Present ROM normal PULMONARY Pulmonary: Present effort normal, Present breath sounds normal CARDIOVASCULAR Cardiovascular: Present regular rhythm, Present heart sounds normal, Present capillary refill normal, Present normal rate GASTROINTESTINAL Abdominal: Present soft, Present nontender, Present bowel sounds normal GENITOURINARY Genitourinary: Present exam deferred SKIN Skin: Present warm, Present dry MUSCULOSKELETAL Musculoskeletal: Present ROM normal NEUROLOGICAL Neurological: Present alert, Present oriented x 3, Present no gross motor or sensory deficits PSYCHOLOGICAL Psychological: Present mood/affect normal, Present judgement normal Assessment & Plan Medical Decision Making MDM 54-year-old female presents for cough, muscle pains, upper respiratory symptoms. She states symptoms ongoing for 1 week and she was tested for coronavirus which was negative. She recently just got a flu shot. Examination shows an overall well-appearing female in no acute distress, vital signs stable, within normal limits. Initial differential includes coronavirus versus influenza versus vaccine reaction versus influenza versus other upper respiratory infection among others. Workup is unremarkable. likely viral URI. COVID negative. Doubt emergent process at this time. I discussed results patient as well as expected disease time course and management. They will follow up with their primary care provider or return to the emergency department for new or worsening symptoms. Patient's appropriate for discharge. Part of this note was dictated with Lucita and is subject to recognition errors. Reassessment Reassessment time: 13:30 Reassessment Well appearing, NAD Assessment & Plan Final Impression: (1) URI, acute Depart Disposition: HOME, SELF-CARE Last Vital Signs Date Time Temp Pulse Resp B/P (MAP) Pulse Ox O2 Delivery O2 Flow Rate FiO2 08/13/20 13:07 103.3 96 20 135/65 100 Room Air Home Meds Reported Medications [Flonase] No Conflict Check, 1 SPRAYS NS DAILY PRN for ALLERGY 05/26/17 Oxycodone Hcl/Acetaminophen (PERCOCET 7.5-325 MG TABLET) 1 Each Tablet, 1 TAB PO Q6H PRN for PAIN 05/26/17 Promethazine Hcl (PROMETHAZINE HCL) 25 Mg Tablet, 25 MG PO Q6H PRN for NAUSEA, TAB 05/26/17 Alprazolam (XANAX) 0.5 Mg Tablet, 1 TAB PO HS PRN for INSOMNIA 05/26/17 Sertraline Hcl (ZOLOFT) 50 Mg Tablet, 50 MG PO DAILY, #30 TAB 05/26/17 Pantoprazole Sodium* (PROTONIX) 40 Mg Tablet.dr, 40 MG PO DAILY, TAB 05/26/17 Verapamil Hcl (VERAPAMIL ER) 180 Mg Cap24h.pel, 180 MG PO DAILY 06/17/13 Atenolol (ATENOLOL) 50 Mg Tablet, 50 MG PO HS 06/17/13 DIEGO HER MD Aug 13, 2020 13:30
[2020-08-13 13:34] LABS: BASOPHILS % 0.2 % (0.0-1.0); EOSINOPHILS % 0.4 % (0.0-6.0); HEMATOCRIT 36.6 % (34.2-44.1); HEMOGLOBIN 10.8 g/dL (12.0-16.0); LYMPHOCYTES # (AUTO) 1.2 (1.0-3.2); LYMPHOCYTES % 11.1 % (18.0-39.1); MEAN CORPUSCULAR HEMOGLOBIN 22.9 pg (28-32); MEAN CORPUSCULAR HGB CONC 29.5 g/dL (31-35); MEAN CORPUSCULAR VOLUME 77.5 fL (81-99); MONOCYTES # (AUTO) 0.7 (0.2-0.8); MONOCYTES % 6.8 % (4.4-11.3); NEUTROPHILS # (AUTO) 8.9 (2.1-6.9); NEUTROPHILS % 81.2 % (38.7-80.0); PLATELET COUNT 266 x10e3/uL (140-360); RED BLOOD COUNT 4.72 x10e6/uL (3.6-5.1); RED CELL DISTRIBUTION WIDTH 15.7 % (11.7-14.4)
[2020-08-13 13:53] LABS: ALBUMIN 3.9 g/dL (3.5-5.0); ALBUMIN/GLOBULIN RATIO 1.2 (0.8-2.0); ANION GAP 14.6 mmol/L (8-16); CALCIUM 8.5 mg/dL (8.4-10.2); CREATININE, SERUM 0.99 mg/dL (0.57-1.11); POTASSIUM 3.6 mmol/L (3.5-5.1)
--- NOTE | 2020-08-13 14:10 | Diagnostic Imaging Report ---
EXAMINATION: CHEST SINGLE (PORTABLE) INDICATION: Cough, fever COMPARISON: None FINDINGS: LINES/TUBES:None LUNGS:The lungs are well-inflated. No focal consolidation or pulmonary edema. PLEURA:No pleural effusion or pneumothorax. MEDIASTINUM:The cardiomediastinal silhouette appears normal in size and shape. BONES/SOFT TISSUES:No acute osseous injury. ABDOMEN:No free air under the diaphragm. IMPRESSION: No focal pneumonia or pulmonary edema. Signed by: Khadijah Arevalo MD on 08/13/2020 2:07 PM
[2020-08-13 15:57] LABS: CLARITY,URINE SL CLOUDY (CLEAR); COLOR,URINE YELLOW (YELLOW); KETONES,URINE TRACE (NEGATIVE); LEUKOCYTE ESTERASE ,URINE SMALL (NEGATIVE); NITRITE,URINE POSITIVE (NEGATIVE); PROTEIN,URINE DIPSTICK 2+ (NEGATIVE)
[2020-08-13 15:58] LABS: BILIRUBIN,URINE NEGATIVE (NEGATIVE); URINE UROBILINOGEN 0.2 mg/dL (0.2 - 1)
[2020-08-13 16:10] LABS: BACTERIA,URINE MANY /HPF; TRANSITIONAL EPI CELLS,URINE FEW; WBC,URINE (MAN) 21-50 /HPF (0-5)
[2020-08-13] MEDS ORDERED: KEFLEX500 MG PO (16:13)
[2020-08-13 16:18] VITALS: BP 109/54
== END 2020-08-13 16:31 | disposition home or self-care (01) ==
LOC: ER 12:59
DX: J06.9 Acute upper respiratory infection, unspecified (principal); R05 Cough; R50.9 Fever, unspecified; E78.5 Hyperlipidemia, unspecified; K21.9 Gastro-esophageal reflux disease without esophagitis; F41.9 Anxiety disorder, unspecified; Z11.59 Encounter for screening for other viral diseases
CPT/HCPCS: 36415; 71045; 80053; 81001; 85025; 99283; J1885; J7030; U0002

== ENCOUNTER 2021-07-19 12:46 | Emergency (ER) | payer BC ==
[~2021-07-19] VITALS: Ht 162.6 cm; Wt 104.3 kg
[~2021-07-19 12:46] MED LIST changes: +KEFLEX500 MG PO
[2021-07-19] MEDS ORDERED: IBUPROFEN 600 MG TAB PO STA (14:04)
[2021-07-19] MEDS ORDERED: CASIRIVIMAB/IMDEVIMAB 10 ML in SODIUM CHLORIDE 0.9% 100 ML IV ONE (15:15)
== END 2021-07-19 17:21 | disposition home or self-care (01) ==
LOC: ER 14:38
DX: R50.9 Fever, unspecified (principal); U07.1 COVID-19; I10 Essential (primary) hypertension; E78.5 Hyperlipidemia, unspecified; J45.909 Unspecified asthma, uncomplicated; K21.9 Gastro-esophageal reflux disease without esophagitis; F41.9 Anxiety disorder, unspecified; Z98.84 Bariatric surgery status; E66.9 Obesity, unspecified
CPT/HCPCS: 99282; J7050; U0002